=== PATIENT | male | born 1975 | race Two or more races ===

== ENCOUNTER → 2023-12-01 08:27 | Outpatient (REF) | payer OTHER, SELFPAY | LOC: RCS 08:27 | PROVIDERS: ATTENDING PHYSICIAN Internal Medicine Cardiovascular Disease; FAMILY PHYSICIAN Internal Medicine | DX: I35.1 Nonrheumatic aortic (valve) insufficiency (principal) | CPT/HCPCS: 93306 ==

== ENCOUNTER → 2024-04-06 06:54 | Outpatient (REF) | payer OTHER, SELFPAY | LOC: RAD 06:54 | PROVIDERS: ATTENDING PHYSICIAN Nurse Practitioner Family; FAMILY PHYSICIAN Internal Medicine | DX: E04.1 Nontoxic single thyroid nodule (principal) | CPT/HCPCS: 76536 ==

== ENCOUNTER → 2024-06-04 10:20 | Outpatient (REF) | payer OTHER, SELFPAY ==
[2024-06-06 17:15] LABS: Quantiferon Mitogen minus NIL 9.51 IU/mL; Quantiferon NIL 0.11 IU/mL; Quantiferon TB Gold Plus Negative (Negative)
== END ==
LOC: RAD 10:20
PROVIDERS: ATTENDING PHYSICIAN Nurse Practitioner Family; FAMILY PHYSICIAN Internal Medicine
DX: R05.9 Cough, unspecified (principal); Z11.1 Encounter for screening for respiratory tuberculosis
CPT/HCPCS: 36415; 71046; 86480

== ENCOUNTER → 2024-06-07 08:29 | Outpatient (REF) | payer OTHER, SELFPAY | LOC: RCS 08:29 | PROVIDERS: ATTENDING PHYSICIAN Internal Medicine Cardiovascular Disease; FAMILY PHYSICIAN Internal Medicine | DX: I35.1 Nonrheumatic aortic (valve) insufficiency (principal) | CPT/HCPCS: 93306 ==

== ENCOUNTER → 2024-06-16 09:13 | Outpatient (REF) | payer OTHER, SELFPAY ==
[2024-06-16 13:00] LABS: Urine Albumin Negative (Neg - Trace); Urine Bilirubin Negative (Negative); Urine Character Clear (Clear); Urine Color Yellow; Urine Glucose Negative (Negative); Urine Ketone Negative (Negative); Urine Leukocyte Negative (Negative); Urine Nitrite Negative (Negative); Urine Occult Blood Negative (Negative); Urine Specific Gravity 1.005 (<1.030); Urine Urobilinogen Negative (Neg - 1+)
[2024-06-16 14:07] LABS: ALT (SGPT) 20 U/L (0-50); AST (SGOT) 23 U/L (17-59); Albumin 4.3 g/dl (3.5-5.0); Alkaline Phosphatase 59 U/L (38-126); Blood Urea Nitrogen 24 mg/dl (9-20); Calcium 9.4 mg/dl (8.4-10.2); Carbon Dioxide 32 mmol/L (22-30); Chloride 99 mmol/L (98-107); Glucose 90 mg/dl (70-99); HDL Cholesterol 56 mg/dl; LDL Cholesterol, Calculated 86 mg/dl; Potassium 4.9 mmol/L (3.5-5.1); Sodium 140 mmol/L (135-145); Total Bilirubin 1.1 mg/dl (0.2-1.3); Total Cholesterol 152 mg/dl (50-199); Total Protein 7.1 g/dl (6.3-8.2); Triglyceride 50 mg/dl (10-149); Very Low Density Lipoprotein 10 mg/dl (0-30); eGFR > 60.00
[2024-06-16 14:21] LABS: Microalbumin, Random Urine < 0.6 mg/dl (0.6-1.7)
== END ==
LOC: HWRAD 09:13
PROVIDERS: ATTENDING PHYSICIAN Specialist; FAMILY PHYSICIAN Internal Medicine
DX: I70.1 Atherosclerosis of renal artery (principal); E78.00 Pure hypercholesterolemia, unspecified; I73.9 Peripheral vascular disease, unspecified; I10 Essential (primary) hypertension; E87.3 Alkalosis
CPT/HCPCS: 36415; 76775; 80053; 80061; 81003; 82043

== ENCOUNTER 2024-07-16 09:27 | Day surgery (SDC) | payer OTHER, SELFPAY ==
[2024-07-08 09:15] LABS: % Basophils 0.5 % (0-2); % Immature Granulocytes 0.3 % (0-0.5); % Lymphocytes 36.8 % (20.5-51.1); % Monocytes 12.6 % (1.7-9.3); % Neutrophils 47.8 % (42.2-75.2); Absolute Eosinophils 0.2 10^3/uL (0-0.7); Absolute Lymphocytes 2.8 10^3/uL (1.2-3.4); Absolute Neutrophils 3.7 10^3/uL (1.4-6.5); Hematocrit 43.4 % (39.0-52.0); Hemoglobin 14.3 g/dL (13.0-18.0); Mean Corp Hgb Conc. 32.9 g/dL (33.0-37.0); Mean Corpuscular Hgb 29.5 pg (27.0-31.0); Mean Corpuscular Volume 89.5 fL (80.0-94.0); Mean Platelet Volume 10.9 fL (7.4-10.4); Nucleated Red Blood Cells % 0 % (-); Platelet Count 153 10^3/uL (130-400); Red Blood Cell Count 4.85 10^6/uL (4.70-6.10); Red Cell Dist. Width 14.8 % (11.5-14.5); White Blood Cell Count 7.7 10^3/uL (4.8-10.8)
[2024-07-16] VITALS (12 sets, daily range): BP systolic 94–129; BP diastolic 38–52; BMI 25.5
[2024-07-16] MEDS: NSS 229 ML IV (12:01)
--- NOTE | 2024-07-16 13:38 | ITS.CL.PN ---
Loss Control Representative - Procedure Note
Procedure
Procedure Note:
CARDIAC CATHETERIZATION REPORT
Date of Procedure: 07/16/2024
Referring: Dr. Mike Benavidez MD, PhD
Indication: Severe aortic insufficiency, evaluation prior to CT surgery
PROCEDURE(S)
1. left heart catheterization
2. coronary angiography
ACCESS: 6F right radial artery (closure: radial band)
CATHETERS
1. 6F JR4
2. 6F JL3.5 (best for LAD)
3. 6F JL4 (best for LCx)
MODERATE SEDATION: 25 minutes of moderate sedation was utilized. An independent medical record technician was present to assist with and help manage the patient's level of consciousness and physiologic status.
HEMODYNAMIC DATA
LV 138/10 (EDP 23) mmHg
AO 126/51 (mean 80) mmHg
CORONARY ANGIOGRAPHY
Dominance: Left
LM: Absent (LAD and LCx arise from the LCC with separate ostia)
LAD: Large vessel giving rise to 3 small diagonal branches and multiple septal perforators. There is no coronary artery disease.
LCx: Large dominant vessel giving rise to a moderate caliber OM1, 2 moderate caliber LPL branches, and a moderate caliber LPDA. There is no coronary artery disease.
RCA: Small, nondominant, and without disease
RADIATION: dose 7.13 mGy; DAP 14.3361 Gy*cm2; fluoroscopy time 5.9 min
CONCLUSIONS
1. Normal coronary arteries and a left dominant system with the LAD and LCx arising from separate ostia.
2. Moderately elevated LV filling pressure with no aortic stenosis.
RECOMMENDATIONS
1. Proceed with surgical evaluation for AVR.
2. Primary prevention of coronary artery disease.
Copy to: Dr. Oumar Davidson MD (CT surgeon); Dr. Alfred Goncalves MD (life skills instructor); Dr. Roberto Arreola MD (PCP)
Signed: Ralph Benavidez MD, PhD
== END 2024-07-16 16:09 | disposition home or self-care (01) ==
LOC: CATH 09:27
PROVIDERS: ATTENDING PHYSICIAN Student in an Organized Health Care Education/Training Program; FAMILY PHYSICIAN Internal Medicine
DX: I35.1 Nonrheumatic aortic (valve) insufficiency (principal); Z79.82 Long term (current) use of aspirin; Z79.899 Other long term (current) drug therapy
CPT/HCPCS: 99152; 99153; 36415; 85025; 93005; 93458; C1894; Q9967

== ENCOUNTER → 2024-07-21 09:00 | Outpatient (REF) | payer OTHER, SELFPAY | LOC: RAD 09:00 | PROVIDERS: ATTENDING PHYSICIAN Thoracic Surgery (Cardiothoracic Vascular Surgery); FAMILY PHYSICIAN Internal Medicine | DX: I35.1 Nonrheumatic aortic (valve) insufficiency (principal); I77.810 Thoracic aortic ectasia; Z01.810 Encounter for preprocedural cardiovascular examination | CPT/HCPCS: 71275; 74174; Q9967 ==

== ENCOUNTER 2024-09-14 05:15 | Inpatient (IN) | payer OTHER, SELFPAY ==
[2024-07-27 08:40] VITALS: BMI 24.4
[2024-07-27 09:10] LABS: Urine Albumin Negative (Neg - Trace); Urine Bilirubin Negative (Negative); Urine Character Clear (Clear); Urine Color Yellow; Urine Glucose Negative (Negative); Urine Ketone Negative (Negative); Urine Leukocyte Negative (Negative); Urine Nitrite Negative (Negative); Urine Occult Blood Negative (Negative); Urine Urobilinogen Negative (Neg - 1+)
[2024-07-27 09:10] LABS: % Basophils 0.5 % (0-2); % Eosinophils 1.1 % (0-6); % Immature Granulocytes 0.1 % (0-0.5); % Lymphocytes 30.8 % (20.5-51.1); % Monocytes 11.2 % (1.7-9.3); % Neutrophils 56.3 % (42.2-75.2); Absolute Eosinophils 0.1 10^3/uL (0-0.7); Absolute Lymphocytes 2.3 10^3/uL (1.2-3.4); Absolute Monocytes 0.8 10^3/uL (0.1-0.6); Absolute Neutrophils 4.2 10^3/uL (1.4-6.5); Hematocrit 43.8 % (39.0-52.0); Hemoglobin 14.4 g/dL (13.0-18.0); Mean Corp Hgb Conc. 32.9 g/dL (33.0-37.0); Mean Corpuscular Hgb 29.1 pg (27.0-31.0); Mean Corpuscular Volume 88.7 fL (80.0-94.0); Mean Platelet Volume 10.5 fL (7.4-10.4); Nucleated Red Blood Cells % 0 % (-); Platelet Count 185 10^3/uL (130-400); Red Blood Cell Count 4.94 10^6/uL (4.70-6.10); Red Cell Dist. Width 14.5 % (11.5-14.5); White Blood Cell Count 7.4 10^3/uL (4.8-10.8)
[2024-07-27 09:21] LABS: APTT 30.2 Sec (23.4-35.0); INR 1.03; PT 13.8 Sec (11.4-14.6)
--- NOTE | 2024-07-27 09:56 | CM ---
Chart reviewed. Met with the patient in PAT. Reviewed preoperative and postoperative instructions and restrictions, along with showering guidelines. Gave patient Cardiac Surgery Book. Patient is agreeable to a home visit with CT Transitional
RN. Patient is independent of ADLS, lives with his in a 3 STH, 4 KAYLAH, 0 DME. Plan is for the patient to return home with CT Transitional RN. CM to follow.
[2024-07-27 10:23] LABS: ALT (SGPT) 18 U/L (0-50); AST (SGOT) 22 U/L (17-59); Albumin 4.4 g/dl (3.5-5.0); Alkaline Phosphatase 62 U/L (38-126); Blood Urea Nitrogen 24 mg/dl (9-20); Calcium 9.3 mg/dl (8.4-10.2); Carbon Dioxide 30 mmol/L (22-30); Chloride 101 mmol/L (98-107); Direct Bilirubin 0.3 mg/dl (0.0-0.4); Estimated Creatinine Clearance 74 ml/min; Glucose 99 mg/dl (70-99); Sodium 140 mmol/L (135-145); eGFR > 60.00
[2024-07-27 10:35] LABS: Glycohemoglobin (HgbA1c) 5.7 % (4.0-5.6)
[2024-08-27 08:29] VITALS: BMI 24.4
[2024-08-27 09:05] LABS: % Basophils 0.5 % (0-2); % Eosinophils 1.5 % (0-6); % Immature Granulocytes 0.3 % (0-0.5); % Lymphocytes 36.7 % (20.5-51.1); % Monocytes 12.1 % (1.7-9.3); % Neutrophils 48.9 % (42.2-75.2); Absolute Eosinophils 0.1 10^3/uL (0-0.7); Absolute Lymphocytes 2.3 10^3/uL (1.2-3.4); Absolute Monocytes 0.8 10^3/uL (0.1-0.6); Hematocrit 42.5 % (39.0-52.0); Hemoglobin 14.2 g/dL (13.0-18.0); Mean Corp Hgb Conc. 33.4 g/dL (33.0-37.0); Mean Corpuscular Hgb 29.5 pg (27.0-31.0); Mean Corpuscular Volume 88.2 fL (80.0-94.0); Nucleated Red Blood Cells % 0 % (-); Platelet Count 185 10^3/uL (130-400); Red Blood Cell Count 4.82 10^6/uL (4.70-6.10); White Blood Cell Count 6.2 10^3/uL (4.8-10.8)
[2024-08-27 09:11] LABS: Urine Albumin Negative (Neg - Trace); Urine Bilirubin Negative (Negative); Urine Character Clear (Clear); Urine Color Yellow; Urine Glucose Negative (Negative); Urine Ketone Negative (Negative); Urine Leukocyte Negative (Negative); Urine Nitrite Negative (Negative); Urine Occult Blood Negative (Negative); Urine Specific Gravity 1.015 (<1.030); Urine Urobilinogen Negative (Neg - 1+)
[2024-08-27 09:13] LABS: INR 0.99; PT 13.4 Sec (11.4-14.6)
[2024-08-27 09:14] LABS: APTT 31.2 Sec (23.4-35.0)
[2024-08-27 09:28] LABS: ALT (SGPT) 14 U/L (0-50); AST (SGOT) 19 U/L (17-59); Albumin 4.3 g/dl (3.5-5.0); Alkaline Phosphatase 53 U/L (38-126); Blood Urea Nitrogen 27 mg/dl (9-20); Calcium 9.1 mg/dl (8.4-10.2); Carbon Dioxide 33 mmol/L (22-30); Chloride 106 mmol/L (98-107); Estimated Creatinine Clearance 81 ml/min; Glucose 88 mg/dl (70-99); Potassium 4.8 mmol/L (3.5-5.1); Sodium 142 mmol/L (135-145); Total Bilirubin 0.7 mg/dl (0.2-1.3); Total Protein 7.2 g/dl (6.3-8.2); eGFR > 60.00
--- NOTE | 2024-08-27 09:28 | CM ---
Met with Mr. Lozano in [facility]. He states prior to admission he resides with his spouse in a three story home with four steps to enter. He states he has a full flight of steps to get to bedroom/full bathroom. He states he has a powder room on the
first floor and another full bathroom on the lower level. He states prior to admission he was independent with ambulation and adls. He states he does not have any DME in the home. He states he has a prescription plan and uses [facility]. He
states his spouse works outside the home but his [id number]-sg-sdu will be home to assist in his care if needed. The discharge plan is to return home with his spouse and [id number] and a home visit by the Transitional Care Nurse when medically
stable.
We briefly review the shower instructions. He already has the soap. Gave him the shower instructions again. We also reviewed restrictions including sternal precautions and driving restrictions. We discusses a home visit by the Transitional Care
Nurse. He is agreeable to a home visit. The plan is for Mechanical Bentoll Root Replacement on Saturday, September 14, 2024.
[2024-08-27 10:22] LABS: Glycohemoglobin (HgbA1c) 5.7 % (4.0-5.6)
[2024-09-14] VITALS (18 sets, daily range): BP systolic 78–172; BP diastolic 54–76; BMI 23.7
[2024-09-14] MEDS: LOPRESSOR 25 MG PO (05:40)
[2024-09-14] MEDS: PROTONIX 40 MG PO (05:40)
[2024-09-14] MEDS: MAGNESIUM OXIDE 500 MG PO (05:40)
[2024-09-14] MEDS: BACTROBAN 2% OINTMENT 1 APPLIC NASAL ×2 (05:41→20:14)
--- NOTE | 2024-09-14 06:00 | PTCARENOTE ---
[facility] BELKYS clip with Dr. Davidson. two home showers confirmed. pt clipped and washed with CHG wipes. home medications reviews. pre op meds given. all admission questions answered. preop checklist
completed. pt awaiting CVOR.
--- NOTE | 2024-09-14 06:19 | W.CVOR.SURPR ---
CVOR Surgeon Immed Pre Op
-
I have examined this patient prior to performance of the scheduled procedure.
The patient's condition is unchanged from the time of the dictated/written History and
Physical and the patient is able to undergo the scheduled procedure.
Mech Bentall + BELKYS Clip
[2024-09-14 07:10] LABS: ACT+ - POC 129 Seconds (82-134)
[2024-09-14 07:44] LABS: Urine Albumin 1+ (Neg - Trace); Urine Bilirubin Negative (Negative); Urine Character Clear (Clear); Urine Color Yellow; Urine Glucose Negative (Negative); Urine Ketone Negative (Negative); Urine Leukocyte Negative (Negative); Urine Nitrite Negative (Negative); Urine Occult Blood Negative (Negative); Urine Urobilinogen Negative (Neg - 1+)
[2024-09-14 07:57] LABS: Urine Squamous Cell 0-2 /LPF (Few)
[2024-09-14 07:58] LABS: Urine Bacteria Few (Negative); Urine Red Blood Cell 0-2 /HPF (0-2); Urine White Cell 0-2 /HPF (0-5)
[2024-09-14 08:31] LABS: ACT+ - POC 672 Seconds (82-134)
[2024-09-14 09:11] LABS: ACT+ - POC 730 Seconds (82-134)
[2024-09-14 09:37] LABS: ACT+ - POC 523 Seconds (82-134)
[2024-09-14 09:45] LABS: B.E. - POC 1.7 mmol/L; Glucose - POC 94 mg/dl (70-99); HCO3 - POC 26 mmol/L (21-28); Hematocrit - POC 39 % PCV (42-52); Hemodilution- POC No; Hemoglobin Calculated - POC 13.2; Ionized Calcium - POC 1.13 mmol/L (1.15-1.33); Lactate - POC < 0.30 mmol/L (0.36-0.75); PCO2 - POC 39 mmHg (35-48); PO2 - POC 498 mmHg (83-108); Potassium - POC 3.6 mmol/L (3.5-5.1); Sodium - POC 141 mmol/L (136-145); Specimen Type - POC Arterial; pH - POC 7.43 (7.35-7.45)
[2024-09-14 09:46] LABS: B.E. - POC 4.4 mmol/L; Glucose - POC 107 mg/dl (70-99); HCO3 - POC 27 mmol/L (21-28); Hematocrit - POC 37 % PCV (42-52); Hemodilution- POC Yes; Hemoglobin Calculated - POC 12.5; Ionized Calcium - POC 0.98 mmol/L (1.15-1.33); Lactate - POC < 0.30 mmol/L (0.36-0.75); PCO2 - POC 34 mmHg (35-48); PO2 - POC 397 mmHg (83-108); Potassium - POC 5.1 mmol/L (3.5-5.1); Sodium - POC 140 mmol/L (136-145); Specimen Type - POC Arterial; pH - POC 7.51 (7.35-7.45)
[2024-09-14 10:19] LABS: ACT+ - POC 527 Seconds (82-134)
[2024-09-14 10:36] LABS: B.E. - POC 3.3 mmol/L; Glucose - POC 128 mg/dl (70-99); HCO3 - POC 27 mmol/L (21-28); Hematocrit - POC 36 % PCV (42-52); Hemodilution- POC Yes; Hemoglobin Calculated - POC 12.2; Ionized Calcium - POC 1.05 mmol/L (1.15-1.33); Lactate - POC < 0.30 mmol/L (0.36-0.75); O2 Saturation %Calculated-POC 99.9 % (94-98); PCO2 - POC 37 mmHg (35-48); PO2 - POC 299 mmHg (83-108); Potassium - POC 4.4 mmol/L (3.5-5.1); Sodium - POC 141 mmol/L (136-145); Specimen Type - POC Arterial; pH - POC 7.47 (7.35-7.45)
[2024-09-14 11:02] LABS: ACT+ - POC 145 Seconds (82-134)
[2024-09-14 11:21] LABS: ACT+ - POC 126 Seconds (82-134)
--- NOTE | 2024-09-14 11:21 | W.PN.CD ---
Addendum entered and electronically signed by Juan Ospina MD 09/15/24 08:45:
Patient seen and examined in fibrillation with WHEEL OF FORTUNE DEALER on 09/14/24; agree with below.
- Patient underwent successful mechanical AVR Bentall procedure.
- Intubated; on low-dose Levophed.
- Being atrial paced with improvement in cardiac index.
- Telemetry monitoring.
- Routine post surgical care as directed by CT Surgery; will follow.
Original Note:
Today's Communication / Plan
-
Postoperative management per CT surgery
Follow telemetry
Impression / Plan
-
I/P: 48M with renal artery stenosis, hypertension (managed by nephrology), hypercholesterolemia, and severe aortic valve insufficiency with aortic root aneurysm presents for CT surgery
Primary software client architect: Dr. Benavidez
Severe aortic insufficiency and aortic root aneurysm status post AVR with root ( On-X valve conduit) by Dr. Davidson on 09/14/2024
- Left atrial appendage exclusion [35 mm device]
- Pre-LVEF 55% (dilated LV), post LVEF 60% without RWMA
- Because his [place] aorta tapers quite quickly into a normal caliber, only the proximal portion of his ascending was replaced
- CI improved with pacing
- EKG with sinus bradycardia & prolonged QT, EKG in am - paced at 60bpm
- Telemetry stable, follow
- Review antibiotic prophylaxis prior to discharge
- Warfarin timing per CT surgery
Sinus bradycardia
- AV pacing wires set to 60bpm
- Follow telemetry
Essential hypertension
- Follow BP in the postoperative setting
Renal artery stenosis
- 90% main and accessory left renal arteries
- He has seen Dr. Goncalves in the past
Hypercholesterolemia
- He declined statin in the outpatient setting
- Statin recommended given his atherosclerotic renal artery stenosis
PAD
RA, on Cosentyx
Physical Exam
Vital Signs/Labs
Vital Signs
Temp Resp BP Pulse Ox
97.7 F 18 172/56 98
09/14/24 06:03 09/14/24 06:03 09/14/24 05:20 09/14/24 06:03
09/13/24 09/14/24 09/15/24
06:59 06:59 06:59
Actual Weight 72.8 kg
PT 13.4 Sec (11.4-14.6) 08/27/24 08:38
INR 0.99 08/27/24 08:38
APTT 31.2 Sec (23.4-35.0) 08/27/24 08:38
Physical Exam
Constitutional: No acute distress and Comfortable
EENT: Anicteric and Moist mucous membranes
Cardiovascular: Rhythm & rate is regular and Pedal edema is absent
Respiratory: Lungs clear to auscul. and Other (mechanical ventilation)
GI: Soft and Flat
Neuro/Psych: Alert
Other: Skin (warm and dry)
Data Reviewed
-
Date of Service: September 14, 2024
EKG: Report Reviewed by me
Labs: Labs Reviewed by me
Old Records: Reviewed
[2024-09-14 11:24] LABS: B.E. - POC 1.6 mmol/L; Glucose - POC 137 mg/dl (70-99); HCO3 - POC 25 mmol/L (21-28); Hematocrit - POC 34 % PCV (42-52); Hemodilution- POC Yes; Hemoglobin Calculated - POC 11.5; Lactate - POC 0.31 mmol/L (0.36-0.75); PCO2 - POC 36 mmHg (35-48); PO2 - POC 408 mmHg (83-108); Potassium - POC 3.7 mmol/L (3.5-5.1); Sodium - POC 143 mmol/L (136-145); Specimen Type - POC Arterial; pH - POC 7.46 (7.35-7.45)
--- NOTE | 2024-09-14 11:36 | W.PN.CT.SURG ---
CT Surgery Operative Note
-
CARDIAC SURGERY OPERATIVE REPORT
Preoperative Diagnosis: Systemic inflammatory disorder, severe aortic valve insufficiency with a root aneurysm
Postoperative Diagnosis: Same
Procedure(s) Performed:
1. Standard sternotomy with aortic and right atrial cannulation
2. Left atrial appendage exclusion [35 mm device]
3. Aortic root replacement [mechanical Bentall]
4. Placement of temporary atrial ventricular pacing wires
5. Transesophageal echocardiography
Date of Surgery: 09/14/2024
Comorbidities:
1. Severe aortic valve insufficiency
2. Dilated cardiomyopathy secondary to aortic valve insufficiency
3. Ankylosing spondylitis and rheumatoid arthritis - affecting the aorta and root/valve
4. Hypertension
5. Hypothyroidism
6. Hyperlipidemia
7. CKD
8. Peripheral artery disease
9. Anxiety
10. Aortic root aneurysm
Attending Surgeon: Oumar Davidson MD, MS
Assistants: Maribel Richard PA-C (present and necessary to first responder, retraction, suction, exposure, suture management, and wound closure under my direction)
Anesthesiology: Juice Hernandez MD and Tala Gallardo CRNA
Scrub and Circulating RNs: Chantel Sotelo RN, Scarlett Cruz RN
Computer Discovery Teacher: Jessica Ramos CCP
Anesthesia: GETA
EBL: per perfusion records
Products: None
CPB Time: 135 minutes
Aortic Cross Clamp Time: 114 minutes
Indication(s) for Procedures: This is a 48-year-old male with systemic inflammatory disorder. He has known aortic valve insufficiency that was progressive over the last year. His LV has begun to also dilate. Given his findings, he was counseled
valve having operative intervention. With his systemic inflammatory disorder, he is likely not a good candidate for a Ross procedure, given the appearance of his valve leaflets with its thickening, he was not a candidate for a valve sparing root
replacement. Due to his young age, he was counseled about having a mechanical valve prosthesis placed. He agreed to move forward with surgery and so plan was to do a root replacement with a mechanical valved conduit and left atrial appendage
exclusion given his high propensity for possible A-fib
Aortic Valve Description: Bileaflet valve with fusion of the left and none at the commissure, very abnormal appearing annulus and valve tissue, thickening towards the base of the leaflets heading towards the insertion of the annulus, the root itself
was over 8 mm in terms of thickness at the wall. Left and right coronary ostia in the normal anatomic positions, the left main had a cloacal appearing ostium with both the circumflex and LAD coming off of a common os the right coronary ostia was
very small.
Findings: His left ventricular ejection fraction preoperatively was 55% with no significant regional wall motion abnormalities, he did have a dilated left ventricle that was known preoperatively. Following surgery his EF was 60% with no new
regional wall motion abnormalities. His aortic and root tissue was abnormal and very thickened. The wall of his root was approximately 8 mm in terms of thickness. His leaflets itself were retracted with prolapsing of the left and non, with
thickening of the base of the leaflet heading towards the insertion point at the annulus. His annulus itself was quite large measuring approximately [address] scan and easily accommodating a 29 mechanical valve prosthesis. I opted to replace his
root with a 27/29 mechanical valved conduit with everting stitches from sinus through annulus through LVOT and back up through the sewing cuff. A total of 16 pledgeted 2 Ethibond sutures were used to secure the conduit into place with core knots.
The left and right coronary buttons were anastomosed onto the neosinus, with the left being in the lower half of the right being in the upper half after filling the heart with volume to test for lie. His left atrial appendage was verified to be
free of any thrombus or debris preoperatively and then clipped with a 35mm device flush to the base. I oriented the mechanical valve perpendicular to the aorto mitral curtain, on transesophageal echocardiogram after coming off of cardiopulmonary
bypass there was normal leaflet excursion and the washing jets corresponding to the aorto mitral curtain area and the septal area which is inherent with this device. He did not require inotropic support and in fact was hyperdynamic with an index of
3, he did not require any blood products, he was in his [place] sinus rhythm after short period of AV pacing. Because his [place] aorta tapers quite quickly into a normal caliber, only the proximal portion of his ascending was replaced.
Specimen(s): Aortic tissue and aortic valve leaflets.
Prosthesis:
1. On-X valved conduit, serial #[id number]
2. Left atrial appendage clip, 35 mm, serial #[id number]
3. Bovine pericardium used as a gasket and certain areas of friable tissue, serial number [id number]
4. CoSeal used to cover the graft tissue
Description of Procedure: The patient was taken to the operating room. Their identity and procedure to be performed were verified and they were positioned supine on the operating table. Induction via general anesthesia with endotracheal intubation
was performed and central venous access and arterial monitoring were inserted. A preoperative transesophageal echocardiogram was performed to assess cardiac function and valvular function. The patient was then prepped and draped from chin to feet in
a sterile fashion. A preoperative time-out was performed with all members of the team present. A midline chest incision was performed along with median sternotomy. The innominate vein was isolated. Full heparinization was given (a total of 40,000
units). We created a pericardial well. The aortic cannulation site was chosen where it was soft, pliable, and free of calcium. Cannulation was performed with an arterial cannula in the ascending aorta and a triple-stage venous cannula through the
right atrial appendage. The arterial cannula line had an appropriate bounce and correlating pressures with test dosing. The pulmonary artery was away from the aorta to facilitate a clamp site and aortotomy. Next, a root vent/antegrade
cannula was inserted into the ascending aorta. A retrograde coronary sinus catheter was placed for the RA with HITESH and manual guidance. The ACT was confirmed to be over 400 and retrograde autologous priming was performed before commencing
cardiopulmonary bypass. A left ventricular vent was placed at the right superior pulmonary vein and secured. The aortic cross-clamp was placed after decreasing the flow on the bypass and mean arterial pressure. A total of 1.2L initial dose of
retrograde with a direct ostial antegrade Del-Nido cardioplegia solution was given and planned for re-dosing every 60 minutes as necessary. Immediately after crossclamping, retrograde was started and I opened the aorta aorta transversely and placed
a sutures. I was able to visualize the cardioplegia emanating from the common left main os. There was rapid electro-mechanical arrest of the heart at 250 cc of cardioplegia. After the initial 600 of retrograde was given, I gave an additional 200
into the right, 200 into the circumflex directly and 200 into the LAD directly. Cold slush was placed into a sponge and topically on the RV while we systemically cooled to 34 degrees centigrade. Once the heart was fully arrested finished giving
cardioplegia it was rotated medially and the left atrial appendage was clipped with a 35 mm device flush the base.
Carbon dioxide was used to flood the field. The location of both left and right coronary vessels were visualized in the root. The aorta was fully transected above the STJ. Stay sutures were placed at each commissure to facilitate exposure. The
leaflets were excised and sent for pathological assessment. Next, the aortic sinuses were resected and the left main and right coronary buttons were mobilized. 4-0 pledgeted sutures were used to retract the buttons. A total of 16 pledgeted 2-0
ethibond annular sutures were placed everting fashion circumferentially. These were brought through the sewing cuff of the valved conduit which as then parachuted into place. A Cor-Knot device was used to secure the annular sutures. An eye cautery
was used to first create a small opening to perform left main coronary button anastomosis. The button was then trimmed accordingly and using 5-0 Prolene with a bovine pericardial gasket, the button was reimplanted toward the Caleb-left sinus. Once
this was complete, the conduit was pressurized to evaluate for hemostasis of the left coronary button. Volume was then used to fill the heart to estimate the location for the right coronary button anastomosis. In a similar fashion an eye cautery
was used to create a small opening in the caleb-right sinus and anastomosis was created with 5-0 Prolene running fashion using bovine pericardium as a gasket and friable area. The proximal ascending aorta was then resected and the valved conduit was
trimmed accordingly. The distal anastomosis was performed with a running 4-0 Prolene in a single layer using bovine pericardium as a gasket. Hemostatic absorbable sealant was placed along the suture lines.
De-airing maneuvers were performed and temporary bipolar ventricular pacing wires were placed on the base of the right ventricle and temporary atrial pacing wires at the SVC/Atrial junction. The patient was placed in a Trendelenburg position and
flows on bypass were lowered. The aortic cross clamp was removed and flows were slowly brought back up. The suture lines appeared hemostatic. Transesophageal echocardiography revealed no AI and appropriate prosthetic function. Once de-airing was
satisfactory, the left ventricular vent was removed. After verifying acceptable parameters, we initiated weaning from cardiopulmonary bypass. Once we were off cardiopulmonary bypass, the venous cannula was clamped and removed. A test dose of
protamine was administered and the patient was monitored for any adverse reaction before resuming protamine. Once half of the protamine dose was delivered, pump suckers were turned off and the systolic blood pressure was lowered for aortic
decannulation. The aortic cannula was removed and pursestrings were tied down. All cannulation sites were oversewn with a 4-0 prolene. The suture lines were inspected and hemostasis was confirmed. Mediastinal hemostasis was obtained. Two 24Fr Tj
drains were placed within the pericardium. The sternum was approximated with 4 #7 single and 3 #8 double stainless steel wires. Fascia was approximated with #1 vicryl suture. The subcutaneous, dermis and epidermis were closed in layers in a running
fashion. The skin wound was cleansed and dressed.
All instrument, sponge, and needle counts were confirmed to be correct x 2 at the end of the operation. The patient was transferred to the cardiac intensive care unit in critical but stable condition.
I, Dr. Oumar Davidson, was present, scrubbed for, and performed all critical elements of this procedure.
Oumar Davidson MD, MS
Cardiothoracic Surgeon
[facility]
This dictation was created using the [employer] dictation system. Please excuse any grammatical, typographical, or 'sound alike' errors
--- NOTE | 2024-09-14 11:53 | W.PN.UPDATE ---
Update Note
Progress Note Update
48 year old male electively admitted 09/14/24 for AVR, root replacement due to aortic insufficiency and root enlargement
IV fluids: 1800
U.O.:� 600
Blood:� none
Wires:� A & V wires
Drips: Precedex @ 0.5�
�
NEURO: sedated, pupils +2mm B/L
RESP: #8OT @24cm> 500/60%/14/5. Lungs clear B/L. 2 mediastinal (20cc on arrival) chest tubes to -20cm suction. Sanguineous drainage, no air leak, no crepitus
CV: RRR +S1, S2, no S3, no�rub, no murmur. Dermabond to median sternotomy. RIJ w/[place] locked @ 47cm. PA 21/10; CVP 3; C.O 3.58/CI 2.07
ABD: flat, soft, no BS
EXT: no edema, +2/4 DP pulses B/L, no femoral bruit, radial A-line intact
: Ivan with clear yellow urine
�
A/P: POD #0 s/p AVR/aortic root replacement [#27/29mm mechanical Bentall], left atrial appendage exclusion [35 mm device]
- Keep SBP 90-110mmHg
- wean and extubate
- will need instruction regarding antibiotic prophylaxis for dental and invasive procedures
- begin Coumadin 09/15 for mechanical AVR (goal INR 2-3)
�
# acute surgical blood loss anemia-expected
- trend CBC
�
# Hypothyroidism
- resume Synthroid 75mcg daily on 09/15
# Anklylosing spondylitis
- monthly Cosentyx
�
# Hyperlipidemia
- resume�Zetia 10mg daily on 09/15
[2024-09-14 12:03] LABS: Glucose - Point of Care 124 mg/dl (70-99)
[2024-09-14 12:06] LABS: Glucose - Point of Care 130 mg/dl (70-99)
[2024-09-14 12:21] LABS: B.E. 1.5 mmol/L; HCO3 25.9 mmol/L (21-28); Ionized Calcium 1.15 mMOL/L (1.15-1.33); PCO2 39 mmHg (35-48); PO2 189 mmHg (83-108); Potassium 3.7 mMOL/L (3.5-5.1); Sodium 136 mMOL/L (136-145); pH 7.43 (7.35-7.45)
[2024-09-14 12:24] LABS: Mixed Venous O2 Saturation 72.7 %
[2024-09-14 12:26] LABS: Hematocrit 35.7 % (39.0-52.0); Hemoglobin 12.2 g/dL (13.0-18.0); Platelet Count 136 10^3/uL (130-400)
[2024-09-14 12:31] LABS: APTT 32.3 Sec (23.4-35.0); INR 1.44; PT 17.8 Sec (11.4-14.6)
[2024-09-14] MEDS: SYNTHROID PO (12:35)
[2024-09-14] MEDS: NEURONTIN PO ×2 (12:35→16:44)
[2024-09-14] MEDS: LR 250 ML IV ×2 (12:35→14:31)
[2024-09-14] MEDS: ANCEF 10 IV ×2 (12:35)
[2024-09-14] MEDS: NSS 500 IV (12:35)
[2024-09-14] MEDS: CALCIUM GLUCONATE 100 IV (12:36)
[2024-09-14 12:40] LABS: Blood Urea Nitrogen 24 mg/dl (9-20); Estimated Creatinine Clearance 99 ml/min; Glucose 133 mg/dl (70-99); Magnesium 2.9 mg/dl (1.6-2.3)
--- NOTE | 2024-09-14 12:45 | PTCARENOTE ---
pt received from CVOR, sedated on Precedex gtt, RASS-5. Core temp 95.8F, bear hugger applied as ordered. SB on the monitor, HR 40s. A&V wires in place, pacer box off. goal SBP 90-[address] Davidson, Levophed gtt titrated as ordered. PAP 10-20s/10s.
CVP ~1-7. CI 1.3, PA Maribel aware. Dr Davidson at bedside, placed 100% A-paced, AAI 60/10. CI improved to 1.89. 250ml LR given per Dr. Davidson. palpable pulses, no edema. pt mechanically ventilated, ETT #8.0, 23cm@lip. SIMV 12, TV 500, PEEP 5, FIO2 40%.
99-100% POX. lungs clear anteriorly. CTx2, no air leak or crepitus noted. pt abdomen s/n, denies n/v. Ivan in place, clear yellow urine. sternal incision RETOUCHING OPERATOR, approximated. chest tube site c/d/i. RIJ cordis/swan maintained. R radial Kelsie flushed,
zeroed, and calibrated. PIV. insulin gtt running as ordered. lab work drawn, EKG performed, CXR completed. see worklist for VS, I&O, and assessment.
[2024-09-14 13:04] LABS: Glucose - Point of Care 140 mg/dl (70-99)
[2024-09-14] MEDS: KCL 50 IV ×2 (13:30→14:28)
--- NOTE | 2024-09-14 13:54 | CM ---
Chart reviewed. Patient is in the OR today. Patient is independent of ADLS, lives with his in a 3 STH, 4 KAYLAH, 0 DME. Plan is for the patient to return home with CT Transitional RN. CM to follow
--- NOTE | 2024-09-14 14:10 | PTCARENOTE ---
ava repleted, pt able to ALFORD, follows commands. nods head appropriately. pt placed on CPAP trial @~1407.
[2024-09-14 14:14] LABS: Glucose - Point of Care 111 mg/dl (70-99)
[2024-09-14] MEDS: TYLENOL PO (14:19)
[2024-09-14 14:39] LABS: B.E. - POC 3.4 mmol/L; Blood Urea Nitrogen - POC 22 mg/dl (3-120); Chloride - POC 108 mmol/L (96-111); Creatinine - POC 0.81 mg/dl (0.3-1.0); Glucose - POC 108 mg/dl (70-99); HCO3 - POC 27 mmol/L (21-28); Hematocrit - POC 34 % PCV (42-52); Hemodilution- POC No; Hemoglobin Calculated - POC 11.5; Ionized Calcium - POC 1.27 mmol/L (1.15-1.33); Lactate - POC 1.09 mmol/L (0.36-0.75); O2 Saturation %Calculated-POC 99.7 % (94-98); PCO2 - POC 37 mmHg (35-48); PO2 - POC 194 mmHg (83-108); Potassium - POC 4.2 mmol/L (3.5-5.1); Sodium - POC 141 mmol/L (136-145); Specimen Type - POC Arterial; pH - POC 7.48 (7.35-7.45)
[2024-09-14 15:04] LABS: Glucose - Point of Care 103 mg/dl (70-99)
--- NOTE | 2024-09-14 15:20 | CON.INTV ---
Addendum entered and electronically signed by Viji Harper MD 09/15/24 12:59:
09/15. Patient transferred out of cardiovascular ICU.
[facility] service will sign off, please call as needed
Original Note:
Consultation
Consultation Request
Date/Time Consultation Requested: 09/14/2024
Date/Time Consultation Performed: 09/14/2024
Requesting Provider: Oumar Davidson
Performing Provider: Viji Harper
Reason for Consultation: Aortic insufficiency
Medical History
-
Chief Complaint: Dyspnea
History of Present Illness:
Patient is a 48-year-old gentleman with known history of ankylosing spondylitis and aortic valve insufficiency follows up with cardiology as outpatient. He had an echocardiogram earlier this year which showed worsening aortic regurgitation along
with aortic root dilation. In 07/2024, patient had a cardiac catheterization performed which did not show any significant coronary artery disease. He was subsequently evaluated by cardiothoracic surgery and was admitted electively for aortic root
replacement along with left atrial appendage exclusion. Postsurgery, patient was admitted to CVICU and patient ambassador consultation was requested for further input.
Past medical history.
Ankylosing spondylitis
Hypertension, hyperlipidemia
Hypothyroidism
Aortic insufficiency
No significant past surgical history
Social history. Non-smoker. Works as a databases computer consultant. Regularly exercises.
Allergies / Home Medications
Allergies
Allergy/AdvReac Type Severity Reaction Status Date / Time
No Known Allergies Allergy Verified 08/17/24 09:08
Home Medications
�Medication �Instructions �Recorded �Confirmed �Last Taken �Type
cholecalciferol (vitamin D3) 125 125 mcg PO DAILY Supplement 07/16/24 09/14/24 09/13/24 08:00 History
mcg (5,000 unit) tablet (Vitamin
D3)
coenzyme Q10 100 mg capsule 200 mg PO DAILY Supplement 07/16/24 09/14/24 09/11/24 08:00 History
(CoQ-10)
ezetimibe 10 mg tablet 10 mg PO HS High Cholesterol 07/16/24 09/14/24 09/12/24 08:00 History
levothyroxine 75 mcg tablet 75 mcg PO DAILY Thyroid 07/16/24 09/14/24 09/13/24 08:00 History
(Synthroid)
losartan 50 mg tablet 50 mg PO DAILY Blood Pressure 07/16/24 09/14/24 09/11/24 08:00 History
magnesium 200 mg tablet 400 mg PO HS Supplement 07/16/24 09/14/24 09/07/24 08:00 History
omega 4-mqp-esa-fish oil 910 1 cap PO DAILY Supplement 07/16/24 09/14/24 08/31/24 08:00 History
mg-1,400 mg capsule ([place]-3 Fish
Oil)
secukinumab 150 mg/mL subcutaneous 150 mg SC MONTHLY immunologic 07/16/24 09/14/24 08/23/24 08:00 History
syringe (Cosentyx) disorders
sulfasalazine 500 mg tablet 0.5 g PO Q48H immunologic disorder 07/16/24 09/14/24 09/13/24 08:00 History
chondroitin 80 mg-collagen 400 1 cap PO DAILY Supplement 07/23/24 09/14/24 09/11/24 08:00 History
mg-hyaluronic 40 mg-amino acid
capsule
magnesium citrate 100 mg tablet 500 mg PO DAILY Constipation 07/23/24 09/14/24 09/07/24 08:00 History
turmeric 400 mg capsule 400 mg PO DAILY Supplement 07/23/24 09/14/24 08/31/24 08:00 History
Review of Systems
-
Hematologic/Lymphatic: Other (All 14 systems reviewed and negative except as stated above in the history of present illness.)
Vitals / Labs / Diagnostic Testing
Vital Signs
Temp Pulse Resp BP Pulse Ox
98.2 F 60 11 96/60 100
09/14/24 15:00 09/14/24 15:00 09/14/24 15:00 09/14/24 15:00 09/14/24 15:00
Lab Data
09/14/24 12:05
Laboratory Results
09/14/24
12:05
PT 17.8 H
INR 1.44
APTT 32.3
pH 7.43
pCO2 39
pO2 189 H
HCO3 25.9
O2 Delivery Level
Diagnostic Testing:
Physical Exam
-
HEENT: Normocephalic
Cardiovascular: Other (Metallic click heard)
Respiratory: Clear and Non-Labored Respirations
GI: Non Distended
Neurology: Awake and Oriented
Skin: Warm
General: Comfortable
Assessment
-
S/p left atrial appendage exclusion, aortic root replacement for severe aortic regurgitation POD #0
Titrate off pressors per protocol, currently on Levophed @2, MAP 71
ECHO reviewed with normal EF
PA catheter readings reviewed, 25/11
Management of chest tubes per primary service
Extubated to nasal cannula, saturating 99% on 6 L
ABG(s) 7.43, 39, 189
CXR with no obvious opacities/infiltrates
Maintain supplement oxygen as needed
No prior history of pulmonary disease, no history of smoking
Can add nebulizers if needed
Aspiration precautions
Encouraged incentive spirometry, OOB/ambulation/early mobility
Advance diet as tolerated following extubation
GI prophylaxis: Pantoprazole
Monitor critical I/O's
Ivan/chest tube output
Hb/platelets postoperatively stable
Trend CBC for now
Can transfuse if indicated for Hb <7, plt <50 in surgical patients
DVT prophylaxis including SCDs
Insulin protocol initiated and ongoing
Transition to SQ/off as indicated per team
Other medical diagnoses:
- Ankylosing spondylitis
- Hyperlipidemia
- Hypothyroidism
- Hyperlipidemia
- Anxiety
Critical Care time 58 mins -- The patient is admitted for acute critical illness for the treatment of vital organ failure and/or prevention of further life-threatening conditions. Total care includes time spent in review of history, physical exam,
medications, hemodynamic/ventilator parameters, laboratory data, imaging and discussion with house staff, pharmacy, respiratory therapy, porcelain waxer, and nursing.
Data:
HITESH 09/2024: Eccentric hypertrophy of the left ventricle with low-normal systolic function. LVEF 55%.
Normal right ventricular size and function.
The aortic valve is dilated with sluggish, stiff leaflet motion. Severe aortic
insufficiency. No aortic stenosis.
Functional mitral regurgitation trace to mild in severity.
Normal tricuspid valve.
Dilated aortic root and ascending aorta that quickly tapers to normal size at
the level of the right pulmonary artery.
Small [id number] patent foramen ovale.
Normal left atrial appendage.
Cardiac Cath 07/2024: 1. Normal coronary arteries and a left dominant system with the LAD and LCx arising from separate ostia.
2. Moderately elevated LV filling pressure with no aortic stenosis.
ECHO 05/2024: Moderately dilated left ventricle with normal systolic function and no regional
wall abnormalities.
LVEF is 55% by Luque's method of this.
No LVH.
Normal RV size and function.
Severe eccentric aortic regurgitation.
Estimated PASP of 32 mmHg, assuming right atrial pressure of 3 mmHg.
Dilated aortic root (SOV 4.4 cm, ST junction 3.7 cm).
Compared to prior from December 01, 2023, AI is severe.
--- NOTE | 2024-09-14 16:00 | PTCARENOTE ---
EPOC completed at bedside by FIGURINE MAKER. pt extubated @1447 to 6LNC, 100% POX. oriented x4, follows commands. FIGURINE MAKER aware of hemodynamics, 250ml LR given as ordered. pt washed w/ CHG wipes, gown changed. face washed. oral hygiene performed. sequentials in
place. updated at bedside.
[2024-09-14 16:10] LABS: Glucose - Point of Care 116 mg/dl (70-99)
--- NOTE | 2024-09-14 16:15 | RESPNOTE ---
Patient extubated at 1447 to 6L NC after 30 minutes cpap wean. No stridor on extubation. patient able to verbalize name and clear secretions.
[2024-09-14 16:42] LABS: Hematocrit 34.8 % (39.0-52.0); Hemoglobin 11.9 g/dL (13.0-18.0); Platelet Count 152 10^3/uL (130-400)
[2024-09-14] MEDS: OFIRMEV 100 IV (16:42)
[2024-09-14] MEDS: LOW STRENGTH ASPIRIN 81 MG PO (16:42)
[2024-09-14] MEDS: PACERONE PO ×2 (16:45→22:46)
--- NOTE | 2024-09-14 17:50 | ECGCV ---
<Sherley Romero NP> notified of ECG critical value identified by electronic interpretation on ECG completed on <09/14/24>, at <1739>.
[2024-09-14 18:10] LABS: Glucose - Point of Care 84 mg/dl (70-99)
[2024-09-14] MEDS: ANCEF 5 IV (18:16)
--- NOTE | 2024-09-14 18:31 | ECGCV ---
<Sherley Romero NP> notified of ECG critical value identified by electronic interpretation on ECG completed on <09/14/24>, at <1811>.
--- NOTE | 2024-09-14 18:32 | PTCARENOTE ---
EKG performed as ordered x2, SHELL TRIM OPERATOR aware of results. pt offers no c/o CP or SOB. IS encouraged, 1750ml. tolerating ice chips and sips of water, no c/o n/v. paused pacer w/ SHELL TRIM OPERATOR at bedside, CI w/ intrinsic rhythm 1.44. placed back on AAI settings.
[2024-09-14 20:10] LABS: Glucose - Point of Care 108 mg/dl (70-99)
[2024-09-14] MEDS: SENOKOT-S 1 TABLET PO (20:14)
--- NOTE | 2024-09-14 20:30 | PTCARENOTE ---
Assumed care of pt from dayshift RN. Walking rounds completed. Pt is AAOx3. Resting in bed at this time. 100% A-paced on the tele monitor. HR 60. Temporary epicardial A/V wires intact. Pacer set to AAI 60/10. Audible heart tones. Click and rub
auscultated. BP stable. 110s-120/50s. Cardene infusing to keep SBPs 90-110. CVP ~ 5. PAPs teens/10s. Pt is on 2L NC. POX 98-99%. Lung sounds diminished B/L. Mediastinal CTx2 to -20 suction, no airleak noted, and output WNL. Deep breathing and IS
encouraged. Abdomen soft/nontender. Hypoactive BS. Ivan catheter intact and draining yellow urine. Sternal incision well approximated and TAXICAB STARTER. Right IJ cordis w/ SWAN @45 intact. Right radial a-line intact. PIV x1 intact. All lines leveled, zeroed,
and flushed. Glycemic protocol followed. Pt repositioned in bed. See worklist for full nursing assessment and interventions. Call coreas within reach.
[2024-09-14] MEDS: ZETIA 10 MG PO (21:14)
[2024-09-14] MEDS: NEURONTIN 100 MG PO (21:14)
[2024-09-14] MEDS: TYLENOL 1000 MG PO (21:14)
[2024-09-14] MEDS: ZOFRAN 4 MG IV (21:21)
[2024-09-14 22:04] LABS: Glucose - Point of Care 109 mg/dl (70-99)
[2024-09-14] MEDS: NITROGLYCERIN PREMIX 250 IV (22:05)
[2024-09-14] MEDS: COMPAZINE 10 MG IV (22:46)
[2024-09-14] MEDS: CARDENE 200 IV (23:23)
[2024-09-15] VITALS (27 sets, daily range): BP systolic 91–135; BP diastolic 54–78; PULSE 55; O2SAT 95; BMI 24.3
[2024-09-15 00:11] LABS: Glucose - Point of Care 105 mg/dl (70-99)
--- NOTE | 2024-09-15 00:20 | PTCARENOTE ---
Pt reassessed. No acute change in assessment. Remains 100% A-paced. Occasional PACs. HR 60. BP stable. Nitro added in addition to the Cardene to keep SBPs 90-110. PAPs teens/10s. CVP ~4. CI>2. Pt is 100% on 2 L NC. Mediastinal CTx2 assessment
unchanged. Ivan catheter intact and draining yellow urine. Pt w/ intermittent nausea. SWAN and a-line maintained - all lines leveled, zeroed, and flushed. Call coreas within reach.
[2024-09-15] MEDS: ANCEF 5 IV ×2 (02:05→10:08)
[2024-09-15] MEDS: CARDENE 200 IV ×2 (02:09→05:16)
[2024-09-15 02:15] LABS: Glucose - Point of Care 117 mg/dl (70-99)
[2024-09-15 03:41] LABS: Blood Urea Nitrogen 33 mg/dl (9-20); Calcium 8.1 mg/dl (8.4-10.2); Carbon Dioxide 23 mmol/L (22-30); Chloride 112 mmol/L (98-107); Estimated Creatinine Clearance 60 ml/min; Glucose 125 mg/dl (70-99); Hematocrit 32.3 % (39.0-52.0); Magnesium 2.2 mg/dl (1.6-2.3); Mean Corp Hgb Conc. 34.1 g/dL (33.0-37.0); Mean Corpuscular Hgb 29.6 pg (27.0-31.0); Mean Corpuscular Volume 87.1 fL (80.0-94.0); Mean Platelet Volume 11.7 fL (7.4-10.4); Platelet Count 148 10^3/uL (130-400); Potassium 4.5 mmol/L (3.5-5.1); Red Blood Cell Count 3.71 10^6/uL (4.70-6.10); Red Cell Dist. Width 13.9 % (11.5-14.5); Sodium 141 mmol/L (135-145); White Blood Cell Count 16.6 10^3/uL (4.8-10.8); eGFR 56.72
--- NOTE | 2024-09-15 03:45 | ECGCV ---
<Darrius Clarke> notified of ECG critical value identified by electronic interpretation on ECG completed on <09/15/2024>, at <0331>.
[2024-09-15 03:59] LABS: Glucose - Point of Care 108 mg/dl (70-99)
--- NOTE | 2024-09-15 04:00 | PTCARENOTE ---
Pt reassessed. CTPA at bedside during EKG - temporary pacer paused. Pt underlying rhythm SR. HR 60s. BP 100s/40s. Cardene and Nitro infusing. CVP ~6. PAPs teens/10s. CI > 2. Pt on 2 L NC. POX 96%. Mediastinal CT assessment unchanged. Ivan catheter
intact and draining yellow urine. [place] and a-line leveled, zeroed, and flushed. Pt repositioned in bed. Tolerating ice chips. Labs drawn and sent. No c/o pain at this time. Glycemic protocol followed. Call coreas within reach.
--- NOTE | 2024-09-15 05:00 | W.PN.CT ---
Today's Communication / Plan
-
-pod #1
-no significant issues overnight, some nausea
-kept sbp 90-[address] Davidson - will liberate sbp to 90-130 today
-CI 3.19, CO 6.00. Drips: Cardene 12.5, Nitro 25, Insulin
-CT outputs: 2 meds 160/360 in 12/24 hrs
-follow Cr - 1.5 today (1.1-1.2 preop)
-deline
-maintain Ivan d/t RAMON
-encourage OOB, IS
-plans for anticoagulation for mechanical AVR
Assessment / Plan
-
- Systemic inflammatory disorder, severe aortic valve insufficiency with a root aneurysm- s/p Aortic root replacement [mechanical Bentall, On-X valved conduit]; LAAE [35 mm device] by Dr. Davidson on 09/14/24, pod #1
- Intraop HITESH: LVEF preop was 55% with no significant regional wma, he did have a dilated left ventricle that was known preoperatively. Following surgery, his EF was 60% with no new regional wma. His aortic and root tissue was abnormal and very
thickened. The wall of his root was approximately 8 mm in terms of thickness. His leaflets itself were retracted with prolapsing of the left and non, with thickening of the base of the leaflet heading towards the insertion point at the annulus.
His annulus itself was quite large measuring approximately [address] scan and easily accommodating a 29 mechanical valve prosthesis.
- Severe aortic valve insufficiency
- Dilated cardiomyopathy secondary to aortic valve insufficiency
- Ankylosing spondylitis and rheumatoid arthritis - affecting the aorta and root/valve
- Hypertension
- Hypothyroidism
- Hyperlipidemia
- L MARILIA
- CKD 2 (Cr 1.1-1.2 preop)
- Peripheral artery disease
- Anxiety
- Aortic root aneurysm
- Non-smoker
- Acute postop blood loss anemia- stable without transfusion
- Acute postop abnormal ECG, suspect pericarditis, + rub
- RAMON on CKD
- Acute postop atelectasis
-Acute postop hypovolemia with subsequent hypervolemia
Discussed patient care with: Nursing and Care Team
Subjective
-
Date of Service: September 15, 2024
Objective Data
-
Lab Results
09/15/24 03:08
09/15/24 03:08
PT 17.8 Sec (11.4-14.6) H 09/14/24 12:05
INR 1.44 09/14/24 12:05
APTT 32.3 Sec (23.4-35.0) 09/14/24 12:05
Vital Signs
Vital Signs
Temp Pulse Resp BP Pulse Ox
98.8 F 67 17 100/56 97
09/15/24 04:00 09/15/24 03:55 09/15/24 03:55 09/15/24 03:00 09/15/24 04:00
CT Intake/Output/Weight
09/14/24 09/14/24 09/15/24
06:59 18:59 06:59
Intake Total 1218.8 / 1991.7 772.9 / 1991.7
Output Total 685 / 1295 610 / 1295
Balance 533.8 / 696.7 162.9 / 696.7
SaO2: 97
Physical Exam
-
General: Awake and AOx3
Cardiovascular: Regular rate & rhythm, No Murmurs and Rub
Respiratory: Decreased Breath Sounds
Sternum: Stable
Incision: Clean, Dry and Intact
Extremities: No Edema (2+ DPs b/l)
Abdomen: soft, nontender, nondistended, +decreased bowel sounds
Data Reviewed
-
Lab Results: Results Reviewed
Medications: Active Meds Reviewed
Chest X-Ray: Report Reviewed and Image Reviewed
ECG: Report Reviewed and Image Reviewed
[2024-09-15] MEDS: LR 250 ML IV (05:51)
[2024-09-15] MEDS: SYNTHROID 75 MCG PO (05:58)
[2024-09-15] MEDS: TYLENOL 1000 MG PO ×3 (05:58→21:20)
[2024-09-15 06:18] LABS: Glucose - Point of Care 123 mg/dl (70-99)
--- NOTE | 2024-09-15 07:42 | W.PN.ANS.POP ---
Anesthesia Post Operative
- Anesthesia Post Op Note
Vital Signs Stable-See Nursing Note: Yes
Airway Patent: Yes
Adequate Pain Control: Yes
Change in Mental Status: No
Current Postoperative Nausea & Vomiting: No
Anesthesia Complications: No
General Anesthetic Recall: No
Unplanned Admission: No
Post Op Hydration Adequate: Yes
[2024-09-15] MEDS: DEMEROL 25 MG IV (07:50)
--- NOTE | 2024-09-15 08:00 | PTCARENOTE ---
Addendum entered by Ivana Ortiz RN 09/15/24 11:53:
+click.
Original Note:
Assumed care of patient. Walking rounds completed with previous RN and pt assisted OOB with 2 assist. Pt tolerated. Pt alert and oriented x4. Denies pain, nausea, and shortness of breath. [place] with equal strength throughout. SR on tele with rates in
the 70s. BP controlled with Nitro and Cardene, titrating as BP allows. 130/64. +Rub. Bilateral radial and DP pulses palpable. +1 b/l foot and hand edema. Epicardial AV wires to temp pacer box. thresholds completed. CT SR VICE PRESIDENT notified of inappropriate
pacing with sensitivity at lowest value. To back up . POX 98% on 2L NC, titrated to RA, POX 94%. Lungs diminished throughout. No cough noted. IS encouraged-1500ml achieved. Mediastinal chest tubes x2 y-sited to 1 atrium to -20cm suction
draining serosanguinous fluid. No air leaks, tidaling crepitus noted. Abdomen soft, nontender. Hypoactive BS. +gas. Ivan intact draining adequate amounts of clear deneen urine. Sternal incision approximated with skin glue, JOSE G. CT dressing CDI.
Right IJ cordis intact with NSS KVO infusing. Right radial kervin intact with appropriate waveform, flushed, leveled, and zeroed, reading higher than cuff, ct electric shipyard operator aware. Right AC 18g PIV intact. See MAR for medication administration. See worklist for
complete nursing assessment. Plan of care reviewed and patient in agreement.
--- NOTE | 2024-09-15 08:36 | W.PN.CD ---
Today's Communication / Plan
-
Hold losartan.
Incentive spirometry.
Ambulation.
Warfarin for mechanical SAVR per CT surgery.
Consider diuresis tomorrow.
Impression / Plan
-
Impression/Plan: 48M with renal artery stenosis/CKD, ankylosing spondylitis/rheumatoid arthritis, hypertension (managed by nephrology), hypercholesterolemia, and severe aortic valve insufficiency with aortic root aneurysm presents for elective
AVR/Aortic root replacement.
#Aortic root aneurysm leading to severe aortic valve insufficiency
-Chronic, progressive.
-S/P mechanical SAVR with root ( On-X valved conduit, serial #[id number]) with Dr. Davidson, 09/14/2024.
-Left atrial appendage exclusion (#35 Atriclip, serial #[id number]).
-Pre-LVEF 55% (dilated LV), post LVEF 60% without RWMA
-Because his [place] aorta tapers quite quickly into a normal caliber, only the proximal portion of his ascending was replaced
-Routine post operative care.
-Warfarin for mechanical SAVR per CT surgery.
-Pain/chest tube management per CT surgery.
-Incentive spirometry.
-Ambulation.
#Sinus bradycardia
-Acute.
-AV pacing wires set to 60bpm.
-Follow telemetry.
#Essential hypertension
-Chronic, stable.
-Losartan restarted.
#Acute on chronic Kidney Disease/Renal artery stenosis.
-Acute, creatinine up to 1.7 (baseline 1.2).
-90% main and accessory left renal arteries.
-Hold losartan.
-I suspect a degree of cardiorenal syndrome.
-Check UA.
-Consider diuretics tomorrow.
#Hypercholesterolemia
-Chronic, stable.
-He declined statin in the outpatient setting.
-Consider PCSK9i as an outpatient.
#PAD
-Chronic, stable.
-Currently asymptomatic.
#RA
-Chronic, stable.
-Remains on Cosentyx.
Primary casino surveillance officer: Dr. Benavidez
Subjective/Interval History:
Surgery yesterday.
Weight is up 1.9 kg from yesterday.
BP stable.
CI 3.45 L/min/m2 this morning. PA catheter discontinued.
SaO2 97% on RA.
Creatinine up to 1.7.
Feels well.
DATA:
Cardiac Catheterization, 07/16/2024:
CONCLUSIONS
1. Normal coronary arteries and a left dominant system with the LAD and LCx arising from separate ostia.
2. Moderately elevated LV filling pressure with no aortic stenosis.
Surgery, 09/14/2024:
Procedure(s) Performed:
1. Standard sternotomy with aortic and right atrial cannulation.
2. Left atrial appendage exclusion [35 mm device].
3. Aortic root replacement [mechanical Bentall].
4. Placement of temporary atrial ventricular pacing wires.
5. Transesophageal echocardiography.
Physical Exam
Vital Signs/Labs
Vital Signs
Temp Pulse Resp BP Pulse Ox
36.9 C 74 19 108/62 97
09/15/24 05:00 09/15/24 07:05 09/15/24 07:05 09/15/24 07:00 09/15/24 07:05
09/13/24 09/14/24 09/15/24
11:59 11:59 11:59
Actual Weight 72.8 kg 74.7 kg
09/15/24 03:08
09/15/24 03:08
PT 17.8 Sec (11.4-14.6) H 09/14/24 12:05
INR 1.44 09/14/24 12:05
APTT 32.3 Sec (23.4-35.0) 09/14/24 12:05
Magnesium 2.2 mg/dl (1.6-2.3) 09/15/24 03:08
Physical Exam
Constitutional: No acute distress and Comfortable
EENT: Anicteric and Moist mucous membranes
Cardiovascular: Rhythm & rate is regular, Pedal edema is absent, JVD pressure is normal, S1S2 is normal (S2 is crisp and mechanical.) and Murmur/rub/gallop absent
Respiratory: Respiratory effort normal and Other (Decreased at the bases.)
GI: Soft, Distention absent, Non tender and Normal bowel sounds
Neuro/Psych: AO x 3
Data Reviewed
-
Date of Service: September 15, 2024
Medical Decision Making: Reviewed Test Results, Independent Historian Assessment and Test Interpretation
EKG: Tracing Personally Visualized and interpreted and Report Reviewed by me
Echo: Report Reviewed by me
X-Ray/CT/US/MRI/NUC/PET: Image Personally Visualized and interpreted and Report Reviewed by me
Medical Tests (PFT, Pathology etc): Report Reviewed by me
Labs: Labs Reviewed by me
Old Records: Reviewed
[2024-09-15] MEDS: LOW STRENGTH ASPIRIN 81 MG PO (09:04)
[2024-09-15] MEDS: LIDOCAINE 4% PATCH 1 PATCH TOPICAL (09:04)
[2024-09-15] MEDS: BACTROBAN 2% OINTMENT 1 APPLIC NASAL ×2 (09:04→20:07)
[2024-09-15] MEDS: SENOKOT-S 1 TABLET PO ×2 (09:04→20:07)
[2024-09-15] MEDS: MAGNESIUM OXIDE 500 MG PO ×2 (09:04→20:07)
[2024-09-15] MEDS: PROTONIX 40 MG PO (09:05)
[2024-09-15] MEDS: NEURONTIN 100 MG PO ×3 (09:05→21:22)
[2024-09-15] MEDS: LOPRESSOR 12.5 MG PO ×2 (09:36→20:07)
[2024-09-15 10:27] LABS: Glucose - Point of Care 182 mg/dl (70-99)
[2024-09-15 10:27] LABS: Glucose - Point of Care 102 mg/dl (70-99)
[2024-09-15] MEDS: NSS IV (10:34)
[2024-09-15 11:08] LABS: Glucose - Point of Care 154 mg/dl (70-99)
[2024-09-15 11:23] LABS: Blood Urea Nitrogen 39 mg/dl (9-20); Calcium 7.9 mg/dl (8.4-10.2); Carbon Dioxide 21 mmol/L (22-30); Chloride 108 mmol/L (98-107); Estimated Creatinine Clearance 53 ml/min; Glucose 160 mg/dl (70-99); Potassium 4.5 mmol/L (3.5-5.1); Sodium 137 mmol/L (135-145); eGFR 48.81
--- NOTE | 2024-09-15 11:25 | CM ---
Chart reviewed. Patient is independent of ADLS, lives with his in a 3 [address], 4 [facility], 0 DME. Plan is for the patient to return home with CT Transitional RN. CM to follow
--- NOTE | 2024-09-15 11:30 | PTCARENOTE ---
Pt reassessed. Pt resting in bed. SB on tele with rates in the 50s. BP 126/69. Nitro and cardene titrated off. POX 96% on RA. Surgical sites stable. Chest tube dressing changed. Right radial kervin d/c per verbal orders, hemostasis achieved. NSS KVO
and insulin gtt continue to infuse. Ivan draining adequate amounts of deneen urine. No other acute changes.
[2024-09-15] MEDS: VITAMIN D3 (cholecalciferol) 125 MCG PO (12:55)
[2024-09-15] MEDS: AZULFIDINE 250 MG PO (12:55)
[2024-09-15] MEDS: COZAAR 50 MG PO (12:55)
[2024-09-15 12:59] LABS: Glucose - Point of Care 89 mg/dl (70-99)
--- NOTE | 2024-09-15 13:00 | PTCARENOTE ---
received patient from previous RN. AAOX3. pt reports very mild sternal pain. Pt assisted OOB to chair for lunch with 1 assist. SR/SB on telemetry heart rate in 60s. pulses palpable. +1 edema hands/feet. Pt on room air, sat 95%. lung sounds
diminished. active bowel sounds. liu draining clear deneen urine. Right IJ cordis infusing KVO. mediastinal x2 draining serosanguineous drainage to -20 suction. surgical sites CDI. see worklist for full nursing assessment and interventions.
[2024-09-15] MEDS: FERRLECIT 110 MG IV (13:30)
[2024-09-15] MEDS: PACERONE 200 MG PO ×2 (15:46→21:20)
[2024-09-15] MEDS: COLCHICINE 0.3 MG PO (17:07)
[2024-09-15] MEDS: COUMADIN 5 MG PO (17:09)
--- NOTE | 2024-09-15 17:30 | PTCARENOTE ---
pt ambulated 250 feet in [place]. pt denies pain. resting comfortably between care. no changes in assessment noted.
--- NOTE | 2024-09-15 20:07 | PTCARENOTE ---
received pt from previous rn. pt sitting in chair at the time of assessment. pt AAOx4, VSS, NSR per tele monitor HR 70s, +pulses, +rub and click auscultated, A/V wires set to VVI 25/2, pox 96% on RA lungs clear, diminished, CT Medsx2. set to -20cm
wall suction draining serosanguineous drainage no air leak, crepitus, tidaling noted. +bs, liu draining clear yellow urine, all surgical sites intact, ct dressing c/d/i. RIJ cordis infusing KVO. PIVx1 intact. plan of care discussed and questions
encouraged
[2024-09-15] MEDS: ZETIA 10 MG PO (21:20)
[2024-09-16] VITALS (19 sets, daily range): BP systolic 129–161; BP diastolic 71–88; PULSE 72; O2SAT 99–100; BMI 24.6
--- NOTE | 2024-09-16 00:04 | PTCARENOTE ---
pt resting comfortably in bed, NSR per tele monitor HR 60s. VSS assessment remains unchanged
--- NOTE | 2024-09-16 03:59 | W.PN.CT ---
Today's Communication / Plan
-
-pod #2
-no issues overnight
-in nsr 80s
-CTs output: 2 meds 155/355 in 12/24 hrs
-follow Cr - 1.0 today (1.5-1.7 on 09/15 and 1.1-1.2 preop)
-UO 1060/2065 in 12/24 hrs
-got 5 mg Coumadin on 09/15. INR today 1.46
-current meds (Coumadin, ASA, Lopressor, Amio, Zetia, Colchicine, Protonix). Holding Mg d/t RAMON
-encourage IS, OOB
Assessment / Plan
-
- Systemic inflammatory disorder, severe aortic valve insufficiency with a root aneurysm- s/p Aortic root replacement [mechanical Bentall, On-X valved conduit]; LAAE [35 mm device] by Dr. Davidson on 09/14/24, pod #2
- Intraop HITESH: LVEF preop was 55% with no significant regional wma, he did have a dilated left ventricle that was known preoperatively. Following surgery, his EF was 60% with no new regional wma. His aortic and root tissue was abnormal and very
thickened. The wall of his root was approximately 8 mm in terms of thickness. His leaflets itself were retracted with prolapsing of the left and non, with thickening of the base of the leaflet heading towards the insertion point at the annulus.
His annulus itself was quite large measuring approximately [address] scan and easily accommodating a 29 mechanical valve prosthesis.
- Severe aortic valve insufficiency
- Dilated cardiomyopathy secondary to aortic valve insufficiency
- Ankylosing spondylitis and rheumatoid arthritis - affecting the aorta and root/valve, on Sulfasalazine
- Hypertension
- Hypothyroidism
- Hyperlipidemia
- L MARILIA
- CKD 2 (Cr 1.1-1.2 preop)
- Peripheral artery disease
- Anxiety
- Aortic root aneurysm
- Non-smoker
- Acute postop blood loss anemia- stable without transfusion
- Acute postop abnormal ECG, suspect pericarditis, + rub
- RAMON on CKD
- Acute postop atelectasis
- Acute postop hypovolemia with subsequent hypervolemia
Discussed patient care with: Nursing and Care Team
Subjective
-
Date of Service: September 16, 2024
Objective Data
-
PT 17.8 Sec (11.4-14.6) H 09/14/24 12:05
INR 1.44 09/14/24 12:05
APTT 32.3 Sec (23.4-35.0) 09/14/24 12:05
Vital Signs
Vital Signs
Temp Pulse Resp BP Pulse Ox
98.3 F 65 16 130/71 94
09/16/24 00:01 09/16/24 00:02 09/16/24 00:01 09/16/24 00:02 09/16/24 00:01
CT Intake/Output/Weight
09/15/24 09/15/24 09/16/24
06:59 18:59 06:59
Intake Total 966.2 / 2250.3 326.9 / 386.9 60 / 386.9
Output Total 710 / 1430 1205 / 2390 1185 / 2390
Balance 256.2 / 820.3 -878.1 / -2002.1 -1125 / -2002.1
SaO2: 94
Physical Exam
-
General: Awake and AOx3
Cardiovascular: Regular rate & rhythm, No Murmurs and Rub
Respiratory: Decreased Breath Sounds
Sternum: Stable
Incision: Clean, Dry and Intact
Abdomen: soft, nontender, nondistended, +decreased bowel sounds
Extremities: No Edema (2+ DPs b/l)
Data Reviewed
-
Lab Results: Results Reviewed
Medications: Active Meds Reviewed
Chest X-Ray: Report Reviewed and Image Reviewed
ECG: Report Reviewed and Image Reviewed
[2024-09-16 04:12] LABS: INR 1.46; PT 18.2 Sec (11.4-14.6)
[2024-09-16 04:13] LABS: APTT 36.9 Sec (23.4-35.0)
[2024-09-16 04:17] LABS: Hematocrit 31.1 % (39.0-52.0); Hemoglobin 10.6 g/dL (13.0-18.0); Mean Corp Hgb Conc. 34.1 g/dL (33.0-37.0); Mean Corpuscular Hgb 29.8 pg (27.0-31.0); Mean Corpuscular Volume 87.4 fL (80.0-94.0); Mean Platelet Volume 11.6 fL (7.4-10.4); Platelet Count 147 10^3/uL (130-400); Red Blood Cell Count 3.56 10^6/uL (4.70-6.10); Red Cell Dist. Width 14.3 % (11.5-14.5); White Blood Cell Count 17.7 10^3/uL (4.8-10.8)
--- NOTE | 2024-09-16 04:24 | PTCARENOTE ---
routine labs obtained, VSS, NSR per tele monitor. assessment remains unchanged.
[2024-09-16 04:27] LABS: Blood Urea Nitrogen 27 mg/dl (9-20); Calcium 7.8 mg/dl (8.4-10.2); Carbon Dioxide 29 mmol/L (22-30); Chloride 106 mmol/L (98-107); Estimated Creatinine Clearance 89 ml/min; Glucose 164 mg/dl (70-99); Magnesium 2.3 mg/dl (1.6-2.3); Potassium 4.6 mmol/L (3.5-5.1); Sodium 136 mmol/L (135-145); eGFR > 60.00
[2024-09-16] MEDS: TYLENOL 1000 MG PO ×3 (06:14→21:45)
[2024-09-16] MEDS: SYNTHROID 75 MCG PO (06:14)
[2024-09-16] MEDS: PROTONIX 40 MG PO (07:49)
[2024-09-16] MEDS: LOPRESSOR 12.5 MG PO (07:49)
[2024-09-16] MEDS: LOW STRENGTH ASPIRIN 81 MG PO (07:49)
[2024-09-16] MEDS: PACERONE 200 MG PO ×3 (07:49→21:46)
[2024-09-16] MEDS: COLCHICINE 0.3 MG PO (07:49)
[2024-09-16] MEDS: NEURONTIN 100 MG PO ×3 (07:49→21:45)
[2024-09-16] MEDS: SENOKOT-S 1 TABLET PO ×2 (07:49→20:25)
[2024-09-16] MEDS: VITAMIN D3 (cholecalciferol) 125 MCG PO (07:49)
[2024-09-16] MEDS: BACTROBAN 2% OINTMENT 1 APPLIC NASAL ×2 (07:50→20:25)
[2024-09-16] MEDS: LIDOCAINE 4% PATCH TOPICAL (07:52)
--- NOTE | 2024-09-16 08:13 | W.PN.CD ---
Today's Communication / Plan
-
cont. routine post op care
Impression / Plan
-
Impression/Plan: 48M with renal artery stenosis/CKD, ankylosing spondylitis/rheumatoid arthritis, hypertension (managed by nephrology), hypercholesterolemia, and severe aortic valve insufficiency with aortic root aneurysm presents for elective
AVR/Aortic root replacement.
#Aortic root aneurysm leading to severe aortic valve insufficiency
-Chronic, progressive.
-S/P mechanical SAVR with root ( On-X valved conduit, serial #[id number]) with Dr. Davidson, 09/14/2024.
-Left atrial appendage exclusion (#35 Atriclip, serial #[id number]).
-Pre-LVEF 55% (dilated LV), post LVEF 60% without RWMA
-Because his [place] aorta tapers quite quickly into a normal caliber, only the proximal portion of his ascending was replaced
-Routine post operative care - pacing wire out today, plan for chest tube removal and cordis removal today as well
-Warfarin for mechanical SAVR per CT surgery.
-Pain/chest tube management per CT surgery.
-Incentive spirometry.
-Ambulation.
# post op chest pain
-ekg with some precordial ST changes possible suggestive of pericarditis
-patient with 1/10 chest pain
-cont. colchicine, monitor renal function
#Sinus bradycardia, resolved
#Essential hypertension
-Chronic, stable.
-Losartan restarted.
#Acute on chronic Kidney Disease/Renal artery stenosis, resolved
-Acute, creatinine up to 1.7 (baseline 1.2), now back to baseline
-90% main and accessory left renal arteries.
#Hypercholesterolemia
-Chronic, stable.
-He declined statin in the outpatient setting, cont. ezetimibe
-Consider PCSK9i as an outpatient.
#PAD
-Chronic, stable.
-Currently asymptomatic.
#RA
-Chronic, stable.
-Remains on Cosentyx.
Subjective/Interval History:
significant diuresis yesterday
BP stable.
feels well.
DATA:
Cardiac Catheterization, 07/16/2024:
CONCLUSIONS
1. Normal coronary arteries and a left dominant system with the LAD and LCx arising from separate ostia.
2. Moderately elevated LV filling pressure with no aortic stenosis.
Surgery, 09/14/2024:
Procedure(s) Performed:
1. Standard sternotomy with aortic and right atrial cannulation.
2. Left atrial appendage exclusion 35 mm device.
3. Aortic root replacement [mechanical Bentall].
4. Placement of temporary atrial ventricular pacing wires.
5. Transesophageal echocardiography.
Physical Exam
Vital Signs/Labs
Vital Signs
Temp Pulse Resp BP Pulse Ox
37.0 C 83 16 138/80 96
09/16/24 07:40 09/16/24 07:40 09/16/24 07:40 09/16/24 07:40 09/16/24 07:40
09/15/24 09/16/24 09/17/24
06:59 06:59 06:59
Actual Weight 74.7 kg 75.5 kg
09/16/24 03:32
09/16/24 03:32
PT 18.2 Sec (11.4-14.6) H 09/16/24 03:32
INR 1.46 09/16/24 03:32
APTT 36.9 Sec (23.4-35.0) H 09/16/24 03:32
Magnesium 2.3 mg/dl (1.6-2.3) 09/16/24 03:32
Physical Exam
Constitutional: Comfortable
Cardiovascular: Rhythm & rate is regular
Respiratory: Respiratory effort normal
Neuro/Psych: AO x 3
Data Reviewed
-
Date of Service: September 16, 2024
Medical Decision Making: Reviewed Test Results
EKG: Tracing Personally Visualized and interpreted
Echo: Tracing Personally Visualized and interpreted
Labs: Labs Reviewed by me
--- NOTE | 2024-09-16 08:19 | W.PN.UPDATE ---
Update Note
Progress Note Update
Patient has not required pacing wires. There has been no bradycardia, arrhythmias, complete heart block, or significant pauses.
Site was cleansed with CHG thoroughly
2 atrial and 1 ventricular epicardial pacing wires were pulled at the skin. Bedrest x1 hour and VS [id number] x 4.
If there is no significant CT drainage, will pull mediastinal CTs in 3 hours
Barb MEEKS
Cardiac Surgery
--- NOTE | 2024-09-16 08:48 | PTCARENOTE ---
assumed care of pt from previous shift RN, sinus rhythm on tele, VSS. Epicardial pacing wires pulled bt CT GAMA. Lungs diminished, pox 96-98% on RA. +bs, tolerating po intake, liu catheter draining yellow. CT w minimal amount of drainage. Surgical
sites stable. Cordis and PIV flush easily. Pt denies pain. Plan of care reviewed and questions encouraged.
[2024-09-16 09:28] LABS: APTT 33.5 Sec (23.4-35.0)
--- NOTE | 2024-09-16 11:30 | PTCARENOTE ---
Mediastinal CTs and liu removed as ordered.
[2024-09-16] MEDS: KCL 10 MEQ PO (11:40)
[2024-09-16] MEDS: NSS 500 IV (11:40)
[2024-09-16] MEDS: LASIX 20 MG IV (11:40)
[2024-09-16] MEDS: FERRLECIT 110 MG IV (13:13)
[2024-09-16] MEDS: COUMADIN 5 MG PO (16:37)
--- NOTE | 2024-09-16 16:49 | PTCARENOTE ---
VSS, pt ambulating in hallway without complaint.
--- NOTE | 2024-09-16 20:05 | PTCARENOTE ---
received pt from previous rn. AAOx4, VSS, NSR per tele monitor, HR 80s. +pulses, pox 96% on RA lungs clear, diminished, +bs, patient voiding clear yellow urine in urinal, all surgical incisions intact, RIJ cordis infusing KVO, PIV intact. pt
ambulating in room and hallway w/ . plan of care discussed, questions encouraged
[2024-09-16] MEDS: LOPRESSOR 25 MG PO (20:25)
[2024-09-16] MEDS: ZETIA 10 MG PO (21:45)
[2024-09-16] MEDS: HEPARIN 25000 UNITS/250 ML IV (23:53)
[2024-09-17] VITALS (11 sets, daily range): BP systolic 116–178; BP diastolic 72–97; O2SAT 100; BMI 23.9
--- NOTE | 2024-09-17 00:14 | PTCARENOTE ---
Heparin gtt started. See JUN. NSR per tele monitor Hr 70s, VSS, assessment remains unchanged
--- NOTE | 2024-09-17 04:34 | PTCARENOTE ---
NSR per tele monitor HR 70s, VSS, assessment remains unchanged
[2024-09-17] MEDS: TYLENOL 1000 MG PO ×3 (05:37→21:12)
[2024-09-17] MEDS: SYNTHROID 75 MCG PO (05:37)
[2024-09-17 05:56] LABS: Hematocrit 31.2 % (39.0-52.0); Hemoglobin 10.4 g/dL (13.0-18.0); Mean Corp Hgb Conc. 33.3 g/dL (33.0-37.0); Mean Corpuscular Hgb 29.4 pg (27.0-31.0); Mean Corpuscular Volume 88.1 fL (80.0-94.0); Mean Platelet Volume 10.7 fL (7.4-10.4); Platelet Count 144 10^3/uL (130-400); Red Blood Cell Count 3.54 10^6/uL (4.70-6.10); Red Cell Dist. Width 14.4 % (11.5-14.5); White Blood Cell Count 11.7 10^3/uL (4.8-10.8)
[2024-09-17 06:00] LABS: INR 1.69; PT 20.4 Sec (11.4-14.6)
[2024-09-17 06:14] LABS: Blood Urea Nitrogen 16 mg/dl (9-20); Calcium 8.5 mg/dl (8.4-10.2); Carbon Dioxide 31 mmol/L (22-30); Chloride 107 mmol/L (98-107); Estimated Creatinine Clearance 99 ml/min; Glucose 113 mg/dl (70-99); Sodium 140 mmol/L (135-145); eGFR > 60.00
[2024-09-17 06:43] LABS: APTT 51.2 Sec (23.4-35.0)
[2024-09-17] MEDS: BACTROBAN 2% OINTMENT 1 APPLIC NASAL ×2 (07:38→19:48)
[2024-09-17] MEDS: LOPRESSOR 25 MG PO (07:38)
[2024-09-17] MEDS: NEURONTIN 100 MG PO ×3 (07:38→21:13)
[2024-09-17] MEDS: COLCHICINE 0.3 MG PO (07:38)
[2024-09-17] MEDS: VITAMIN D3 (cholecalciferol) 125 MCG PO (07:38)
[2024-09-17] MEDS: PROTONIX 40 MG PO (07:38)
[2024-09-17] MEDS: LIDOCAINE 4% PATCH TOPICAL (07:39)
[2024-09-17] MEDS: PACERONE 200 MG PO ×3 (07:39→21:13)
[2024-09-17] MEDS: LOW STRENGTH ASPIRIN 81 MG PO (07:39)
[2024-09-17] MEDS: SENOKOT-S 1 TABLET PO ×2 (07:39→19:48)
--- NOTE | 2024-09-17 07:54 | PTCARENOTE ---
pt aaox3. states min pain only wants tylenol. oob in chair. reviewed plan of care and coumadin teaching. pt on heparin gtt as ordered. sternal wound c/d rotary drier feeder. ct dressing intact. right ij cordis in place with kvo. pt bp elevated MD/SUPER[employer] at
bedside aware.
--- NOTE | 2024-09-17 08:49 | W.PN.CT ---
Today's Communication / Plan
-
-pod #3
-doing well, no issues overnight
-low-dose iv Heparin started at midnight
-got 5 mg Coumadin on 09/15 and 09/16. INR today 1.69
-Cr is at baseline 0.9
-weaned off O2 - pOx 98% on RA
-UO 1750/3200 in 12/24 hrs
-encourage IS, OOB
Assessment / Plan
-
- Systemic inflammatory disorder, severe aortic valve insufficiency with a root aneurysm- s/p Aortic root replacement [mechanical Bentall, On-X valved conduit]; LAAE [35 mm device] by Dr. Davidson on 09/14/24, pod #3
- Intraop HITESH: LVEF preop was 55% with no significant regional wma, he did have a dilated left ventricle that was known preoperatively. Following surgery, his EF was 60% with no new regional wma. His aortic and root tissue was abnormal and very
thickened. The wall of his root was approximately 8 mm in terms of thickness. His leaflets itself were retracted with prolapsing of the left and non, with thickening of the base of the leaflet heading towards the insertion point at the annulus.
His annulus itself was quite large measuring approximately [address] scan and easily accommodating a 29 mechanical valve prosthesis.
- Severe aortic valve insufficiency
- Dilated cardiomyopathy secondary to aortic valve insufficiency
- Ankylosing spondylitis and rheumatoid arthritis - affecting the aorta and root/valve, on Sulfasalazine
- Hypertension
- Hypothyroidism
- Hyperlipidemia
- L MARILIA
- CKD 2 (Cr 1.1-1.2 preop)
- Peripheral artery disease
- Anxiety
- Aortic root aneurysm
- Non-smoker
- Acute postop blood loss anemia- stable without transfusion
- Acute postop abnormal ECG, suspect pericarditis, + rub
- RAMON on CKD
- Acute postop atelectasis
- Acute postop hypovolemia with subsequent hypervolemia
- Coumadin anticoagulation
Discussed patient care with: Nursing and Care Team
Subjective
-
Date of Service: September 17, 2024
Objective Data
-
Lab Results
09/17/24 05:36
09/17/24 05:36
PT 20.4 Sec (11.4-14.6) H 09/17/24 05:36
INR 1.69 09/17/24 05:36
APTT Cancelled 09/17/24 06:32
Vital Signs
Vital Signs
Temp Pulse Resp BP Pulse Ox
98.1 F 78 18 178/92 97
09/17/24 07:48 09/17/24 07:48 09/17/24 07:48 09/17/24 07:48 09/17/24 07:[address]
CT Intake/Output/Weight
09/16/24 09/17/24 09/17/24
18:59 06:59 18:59
Intake Total 140 / 175 35 / 175
Output Total 2660 / 5060 2400 / 5060 675 / 675
Balance -2520 / -4885 -2365 / -4885 -675 / -675
SaO2: 97
Physical Exam
-
General: Awake and AOx3
Cardiovascular: Regular rate & rhythm, No Murmurs and No Rub
Respiratory: Decreased Breath Sounds
Sternum: Stable
Incision: Clean, Dry and Intact
Extremities: No Edema (2+ DPs b/l)
Abdomen: soft, nontender, nondistended, + bowel sounds
Data Reviewed
-
Lab Results: Results Reviewed
Medications: Active Meds Reviewed
Chest X-Ray: Report Reviewed and Image Reviewed
ECG: Report Reviewed and Image Reviewed
[2024-09-17] MEDS: COZAAR 50 MG PO ×2 (09:34→19:51)
[2024-09-17] MEDS: LOPRESSOR 12.5 MG PO (09:51)
[2024-09-17] MEDS: FERRLECIT 110 MG IV (13:50)
[2024-09-17] MEDS: AZULFIDINE 250 MG PO (13:50)
[2024-09-17] MEDS: NSS 500 IV (13:50)
--- NOTE | 2024-09-17 15:15 | PTCARENOTE ---
Assumed care of pt at approximately 1500. AAOx3. Heparin gtt infusing per order. Sternal incision approximated w/ surgical adhesive present. CT dressings CDI. R IJ cordis infusing KVO. Pt ambulating halls independently at this time.
[2024-09-17] MEDS: COUMADIN 7.5 MG PO (17:18)
--- NOTE | 2024-09-17 18:01 | W.PN.CD ---
Today's Communication / Plan
-
doing well ahead of planned d/c tomorrow
if additional BP reduction required can increase losartan dose or initiate amlodipine, further titration will be done on outpatient basis
Impression / Plan
-
Impression/Plan: 48M with renal artery stenosis/CKD, ankylosing spondylitis/rheumatoid arthritis, hypertension (managed by nephrology), hypercholesterolemia, and severe aortic valve insufficiency with aortic root aneurysm presents for elective
AVR/Aortic root replacement.
#Aortic root aneurysm leading to severe aortic valve insufficiency
-Chronic, progressive.
-S/P mechanical SAVR with root ( On-X valved conduit, serial #[id number]) with Dr. Davidson, 09/14/2024.
-Left atrial appendage exclusion (#35 Atriclip, serial #[id number]).
-Pre-LVEF 55% (dilated LV), post LVEF 60% without RWMA
-Because his [place] aorta tapers quite quickly into a normal caliber, only the proximal portion of his ascending was replaced
-Routine post operative care - pacing wires and chest tubes out, cordis in for blood draw
-Warfarin for mechanical SAVR per CT surgery.
-Incentive spirometry
-Ambulation.
# post op chest pain
-ekg with some precordial ST changes possible suggestive of pericarditis, resolving
-patient with 1/10 chest pain
-cont. colchicine, monitor renal function
#Sinus bradycardia, resolved
#Essential hypertension
-Chronic, stable.
-Losartan restarted. Resume home antihypertensive regimen as tolerated
#Acute on chronic Kidney Disease/Renal artery stenosis, resolved
-Acute, creatinine up to 1.7 (baseline 1.2), now back to baseline
-90% main and accessory left renal arteries.
#Hypercholesterolemia
-Chronic, stable.
-He declined statin in the outpatient setting, cont. ezetimibe
-Consider PCSK9i as an outpatient.
#PAD
-Chronic, stable.
-Currently asymptomatic.
#RA
-Chronic, stable.
-Remains on Cosentyx.
Subjective/Interval History:
BP hypertensive
feels well
DATA:
Cardiac Catheterization, 07/16/2024:
CONCLUSIONS
1. Normal coronary arteries and a left dominant system with the LAD and LCx arising from separate ostia.
2. Moderately elevated LV filling pressure with no aortic stenosis.
Surgery, 09/14/2024:
Procedure(s) Performed:
1. Standard sternotomy with aortic and right atrial cannulation.
2. Left atrial appendage exclusion 35 mm device.
3. Aortic root replacement [mechanical Bentall].
4. Placement of temporary atrial ventricular pacing wires.
5. Transesophageal echocardiography.
Physical Exam
Vital Signs/Labs
Vital Signs
Temp Pulse Resp BP Pulse Ox
36.9 C 74 18 152/80 99
09/17/24 16:22 09/17/24 16:22 09/17/24 16:22 09/17/24 16:22 09/17/24 16:22
09/16/24 09/17/24 09/18/24
06:59 06:59 06:59
Actual Weight 75.5 kg 73.3 kg
09/17/24 05:36
09/17/24 05:36
PT 20.4 Sec (11.4-14.6) H 09/17/24 05:36
INR 1.69 09/17/24 05:36
APTT 53.0 Sec (23.4-35.0) H 09/17/24 11:36
Magnesium 2.0 mg/dl (1.6-2.3) 09/17/24 05:36
Physical Exam
Constitutional: No acute distress
Cardiovascular: Rhythm & rate is regular
Respiratory: Respiratory effort normal
Neuro/Psych: AO x 3
Data Reviewed
-
Date of Service: September 17, 2024
Medical Decision Making: Reviewed Test Results
Labs: Labs Reviewed by me
[2024-09-17] MEDS: LOPRESSOR 50 MG PO (19:49)
[2024-09-17] MEDS: ZETIA 10 MG PO (21:13)
--- NOTE | 2024-09-17 21:34 | PTCARENOTE ---
Received pt at shift change; AAOx3, offers no complaints. Heparin gtt @ 500 units/hr, per order, R cordis with 10mL/hr KVO. NSR on the monitor, no edema noted, +pulses. Tolerating RA with SpO2 99%, lungs clear. +BS, pt states BM this afternoon,
denies nausea or issues with appetite. Pt ambulating independently without issue. CT removal dressings C/D/I, sternal wound well approximated with surgical glue, surrounding skin intact. Peripheral INT redressed, PM hygiene performed. Pt updated on
POC for the shift, resting comfortably in bed at this time, call coreas within reach.
--- NOTE | 2024-09-18 04:34 | W.PN.CT ---
Today's Communication / Plan
-
Plan:
-No major issues overnight. Hemodynamically and neurologically intact
-On heparin to Coumadin bridge
-INR
-D/C cordis
-BP has been high postop with ongoing adjustments to antihypertensive meds (Lopressor and Losartan has been increased)
-Cont. ASA, Synthroid, Amiodarone, Lopressor, Losartan, Zetia
-F/U 2-view cxr
-Encourage use of IS
-OOB into chair/Ambulate
-Home today
Assessment / Plan
-
- Systemic inflammatory disorder, severe aortic valve insufficiency with a root aneurysm- s/p Aortic root replacement [mechanical Bentall, On-X valved conduit]; LAAE [35 mm device] by Dr. Davidson on 09/14/24, pod #4
- Intraop HITESH: LVEF preop was 55% with no significant regional wma, he did have a dilated left ventricle that was known preoperatively. Following surgery, his EF was 60% with no new regional wma. His aortic and root tissue was abnormal and very
thickened. The wall of his root was approximately 8 mm in terms of thickness. His leaflets itself were retracted with prolapsing of the left and non, with thickening of the base of the leaflet heading towards the insertion point at the annulus.
His annulus itself was quite large measuring approximately [address] scan and easily accommodating a 29 mechanical valve prosthesis.
- Severe aortic valve insufficiency
- Dilated cardiomyopathy secondary to aortic valve insufficiency
- Ankylosing spondylitis and rheumatoid arthritis - affecting the aorta and root/valve, on Sulfasalazine
- Hypertension
- Hypothyroidism
- Hyperlipidemia
- L MARILIA
- CKD 2 (Cr 1.1-1.2 preop)
- Peripheral artery disease
- Anxiety
- Aortic root aneurysm
- Non-smoker
- Acute postop blood loss anemia- stable without transfusion
- Acute postop abnormal ECG, suspect pericarditis, + rub
- RAMON on CKD
- Acute postop atelectasis
- Acute postop hypovolemia with subsequent hypervolemia
- Coumadin anticoagulation
Discussed patient care with: Cardiology, Nursing, Respiratory Therapy, Pharmacy and Care Team
Subjective
-
Date of Service: September 18, 2024
C/O mild incisional pain, otherwise feels well
Objective Data
-
PT 20.4 Sec (11.4-14.6) H 09/17/24 05:36
INR 1.69 09/17/24 05:36
APTT 53.0 Sec (23.4-35.0) H 09/17/24 11:36
Vital Signs
Vital Signs
Temp Pulse Resp BP Pulse Ox
98.4 F 70 18 128/78 99
09/17/24 23:10 09/18/24 02:00 09/17/24 16:22 09/17/24 23:16 09/17/24 20:43
CT Intake/Output/Weight
09/17/24 09/17/24 09/18/24
06:59 18:59 06:59
Intake Total 35 / 175 480 / 480
Output Total 2400 / 5060 875 / 875
Balance -2365 / -4885 -875 / -395 480 / -395
SaO2: 99 (RA)
Physical Exam
-
General: Awake, Oriented and AOx3
Cardiovascular: Regular rate & rhythm, No Murmurs, No Rub and No Gallop
Respiratory: Decreased Breath Sounds (at bases, otherwise clear)
Sternum: Stable
Incision: Clean, Dry, Intact and Dressing Intact
Extremities: Other (+trace edema)
Data Reviewed
-
Lab Results: Results Reviewed
Medications: Active Meds Reviewed
Chest X-Ray: Report Reviewed and Image Reviewed
ECG: Report Reviewed and Image Reviewed
[2024-09-18] MEDS: SYNTHROID 75 MCG PO (05:26)
[2024-09-18] MEDS: TYLENOL 1000 MG PO (05:26)
[2024-09-18 05:28] VITALS: BP 141/87
[2024-09-18 05:32] VITALS: BMI 23.2
[2024-09-18 06:09] LABS: APTT 61.6 Sec (23.4-35.0); INR 2.35; PT 25.8 Sec (11.4-14.6)
[2024-09-18 06:23] LABS: Hematocrit 32.1 % (39.0-52.0); Hemoglobin 10.8 g/dL (13.0-18.0); Mean Corp Hgb Conc. 33.6 g/dL (33.0-37.0); Mean Corpuscular Hgb 29.8 pg (27.0-31.0); Mean Corpuscular Volume 88.4 fL (80.0-94.0); Mean Platelet Volume 10.8 fL (7.4-10.4); Platelet Count 176 10^3/uL (130-400); Red Blood Cell Count 3.63 10^6/uL (4.70-6.10); Red Cell Dist. Width 14.2 % (11.5-14.5); White Blood Cell Count 10.2 10^3/uL (4.8-10.8)
[2024-09-18 06:29] LABS: Blood Urea Nitrogen 16 mg/dl (9-20); Calcium 8.9 mg/dl (8.4-10.2); Carbon Dioxide 32 mmol/L (22-30); Chloride 108 mmol/L (98-107); Estimated Creatinine Clearance 99 ml/min; Glucose 100 mg/dl (70-99); Sodium 142 mmol/L (135-145); eGFR > 60.00
[2024-09-18 08:01] VITALS: BP 144/85
[2024-09-18] MEDS: SENOKOT-S 1 TABLET PO (08:04)
[2024-09-18] MEDS: LOW STRENGTH ASPIRIN 81 MG PO (08:04)
[2024-09-18] MEDS: BACTROBAN 2% OINTMENT 1 APPLIC NASAL (08:04)
[2024-09-18] MEDS: COZAAR 100 MG PO (08:05)
[2024-09-18] MEDS: PROTONIX 40 MG PO (08:05)
[2024-09-18] MEDS: VITAMIN D3 (cholecalciferol) 125 MCG PO (08:05)
[2024-09-18] MEDS: NEURONTIN 100 MG PO (08:05)
[2024-09-18] MEDS: LIDOCAINE 4% PATCH TOPICAL (08:05)
[2024-09-18] MEDS: LOPRESSOR 50 MG PO (08:05)
[2024-09-18] MEDS: COLCHICINE 0.3 MG PO (08:05)
[2024-09-18] MEDS: PACERONE 200 MG PO (08:05)
[2024-09-18] MEDS: NSS IV (10:14)
[2024-09-18 10:20] VITALS: BP 117/84; BP 129/68; PULSE 64; O2SAT 98; O2SAT 99
--- NOTE | 2024-09-18 10:38 | W.DCSUMMARY ---
Discharge Summary
Discharge Data
Date of Admission: 09/14/24
Date of Discharge: 09/18/24
-
Pending Results: No
Hospital Course
Primary care physician: Dr. Roberto Arreola MD
Outpatient director of public safety: Dr. Ralph Benavidez MD
Inpatient consultants: [facility] Cardiology, Pulmonary Medicine (Ad Compositor)
Procedures:
1. Aortic Root Replacement [mechanical Bentall, On-X valved conduit]; LAAE [35 mm device] by Dr. Davidson on 09/14/24
Primary Diagnosis:
1. Severe Aortic Valve Insufficiency with Aortic Root Aneurysm
Secondary Diagnoses:
1. Dilated Cardiomyopathy secondary to AI
2. Hypertension
3. Hypothyroidism
4. Hyperlipidemia
5. CKD Stage 2 (Cr 1.1-1.2 pre-op)
6. PAD
7. Anxiety
8. Ankylosing spondylitis
9. Rheumatoid arthritis
HPI: Mr. Lozano is a 48-year-old male with a PMHx of severe AI, dilated cardiomyopathy secondary to AI, aortic root aneurysm and systemic inflammatory disorders who presented electively on 09/14/24 and underwent Aortic Root Replacement with
mechanical Bentall, / on-X valved conduit, and LAAE with [address] Oumar Davidson.
Hospital course: Patient was admitted on 09/14/24 and underwent an Aortic Root Replacement with mechanical Bentall, on-X valved conduit, and LAAE with [address] Oumar Davidson. On day of surgery, he recovered within the CVICU.
Post-operative EKG indicated pericarditis in which he was started on Colchicine. Warfarin was initiated within the evening of post-operative day 1 for his mechanical valve. Heparin drip was initiated on post-operative day 2 as bridge therapy to
therapeutic INR (2.0-3.0) with warfarin. Patient was noted to be hypertensive during his recovery in which his home regiment of losartan was increased from 50 mg daily to 100 mg daily. On post-operative 4, patient was ambulating in halls, tolerating
diet, with INR of 2.35. Routine 2-view CXR showed small left pleural effusion in which he was given 40 mg PO Lasix. He was discharged to home with plan for Transitional Care Nursing to follow-up on Friday09/20/24 and follow-up appointment with "Adele"Lety in 4-weeks from surgery. He has an outpatient follow-up with Cardiology.
Home medication changes:
- Increased:
- Losartan increased from 50 mg daily 100 mg daily
- Addition:
- Colchicine 0.3 mg daily for 30-days.
- Coumadin 5 mg daily for goal INR 2.0-3.0 for first 3-months following surgery then goal INR 1.5- 2.0.
- Aspirin 81 mg daily.
- Metoprolol Tartrate 50 mg twice a day.
- Post-operative pain management:
- Gabapentin 100 mg TID.
- Acetaminophen 650 mg Q6H PRN for mild pain/fever/headache.
- Oxycodone 5 mg Q6H PRN for moderate-severe pain.
- Holding:
- Cosentyx to be held. Next dose to be in October of 2024.
- [place] 3 fatty-acid on hold, can restart as directed by Geoscience Specialist.
Discharge Plan
-
Patient Disposition: Home (Routine Discharge)
Discharge Diagnosis/Procedures: Severe Aortic Valve Insufficiency with Aortic Root Aneurysm s/p Aortic Root Replacement (mechanical Bentall, on X valve conduit); Left Atrial Appendage Exclusion (35 mm) with Dr. Oumar Davidson on 09/14/24.
Condition: Good
Diet: Regular
Activity: No strenuous activity
Driving Restrictions: Not until seen by your Dr
Bathing Restrictions: OK to Shower
Blood Work: Transitional Care Nurse to check INR on Friday09/20/24
Other Services: Cardiac Rehab
Specialty Instructions: Weigh Daily- Call MD for wt gain/loss 3 lbs overnight/5 lbs in 1 week
Activity Restrictions/Additional Instructions:
ACTIVITY:
-No strenuous activity: no heavy lifting, pushing, pulling anything over 15 pounds for one month
-continue to use stairs as tolerated
DRIVING RESTRICTIONS:
-No driving for one month or until approved by your surgeon
WOUND CARE:
-Shower daily. Use soap & water.
-No lotions, creams or powders on incision area.
DIET:
-continue a low fat/low cholesterol diet.
-IF you are diabetic, continue carb controlled diet.
CARDIAC REHAB:
-Please make appointment to start in 5-6 weeks with your local hospital program. (See Cardiac Rehabilitation Discharge Booklet).
SPECIALTY INSTRUCTIONS:
-Weigh yourself daily. Call your physician for any weight gain/loss of 3 lbs overnight or 5 lbs in one week.
-REPORT any clicking noise or uneven appearance of your sternum to your surgeon immediately.
-If you smoke, you are instructed to quit. The [place] smoking hotline phone number is [phone]
Referrals:
CT Transitional Care Nurse [Outside]
Referral Note: The Cardiothoracic Transitional Care Nurse will call you to set up a visit in 1-2 days.
[facility] Cardiac Re[facility] [Outside]
Referral Note: Cardiac Rehab Orientation appointment is on Saturday, October 19, 2024@ 1:00pm.
The Cardiac Rehab gym is located on the first floor of the [facility].
Cheli Perez CRNP [Specified Professional Personl, Cardiology] - 10/27/24 10:40 am
Roberto Arreola MD [Family Provider, Internal Medicine]
Oumar Davidson MD [Active, Cardiac Surgery] - 10/18/24 1:15 pm
Additional Discharge Medication Instructions: - Your goal INR is 2-3 for the first 3 months following surgery. Following the 3-month period, your new INR goal will be 1.5-2.0 with continuation of Aspirin 81 mg daily.
- Please note that your Losartan (Cozaar) dose has increased to 100 mg daily.
- You will be taking Colchicine 0.3 mg daily for 30-days then discontinue.
Prescriptions:
New
warfarin [Jantoven] 5 mg Tablet
5 mg PO .Nightly 30 Days Qty: 30 0RF
metoprolol tartrate 50 mg Tablet
50 mg PO Q12 30 Days Qty: 60 0RF
colchicine 0.6 mg Tablet
0.3 mg PO DAILY Qty: 15 0RF
aspirin 81 mg Tablet,Chewable
81 mg PO DAILY Qty: 0 0RF
acetaminophen 325 mg Tablet
650 mg PO Q6HPRN PRN (Reason: mild pain,headache,temp >101F ) Qty: 0 0RF
gabapentin 100 mg Capsule
100 mg PO TID Qty: 60 0RF
oxycodone 5 mg Tablet
5 mg PO Q6HPRN PRN (Reason: moderate-severe pain) Qty: 10 0RF
losartan 100 mg tablet
100 mg PO DAILY 30 Days Qty: 30 0RF
Continued
sulfasalazine 500 mg Tablet
0.5 g PO Q48H
levothyroxine [Synthroid] 75 mcg Tablet
75 mcg PO DAILY
magnesium 200 mg Tablet
400 mg PO HS
ezetimibe 10 mg Tablet
10 mg PO HS
coenzyme Q10 [CoQ-10] 100 mg Capsule
200 mg PO DAILY
cholecalciferol (vitamin D3) [Vitamin D3] 125 mcg (5,000 unit) Tablet
125 mcg PO DAILY
turmeric 400 mg Capsule
400 mg PO DAILY
magnesium citrate 100 mg Tablet
500 mg PO DAILY
fozgvyujh-nfavtjyt-umzjopsb-AA 40-80-400 mg Capsule
1 cap PO DAILY
Held
[place]-3 Fish Oil 910-1,400 mg Capsule
1 cap PO DAILY
Hold Instructions: Resume on 10/18/24. Resume as determined by your Geoscience Specialist
Cosentyx 150 mg/mL Syringe
150 mg SC MONTHLY
Hold Instructions: Resume on 10/23/24. Hold monthly dose for September, can resume in October.
Discontinued
losartan 50 mg Tablet
50 mg PO DAILY
Discharge Orders:
Discharge Patient (As Directed); Ordered 09/18/24
Ordered By: Amanda Esparza
Care Plan Goals
Care Plan Goals:
Problem: Readiness for enhanced knowledge related to diagnosis and treatment plan
Goal: Understand your diagnosis and treatment plan needs, including medications if applicable.
Instructions: Know your diagnosis, underlying causes and treatment plan options, including medications if applicable. Consult with your health care team to learn about your diagnosis and treatment plan, including medications if applicable.
Discharge Date and Time
Print Language: ESTONIAN
[2024-09-18] MEDS: KCL 20 MEQ PO (11:02)
[2024-09-18] MEDS: LASIX 40 MG PO (11:02)
--- NOTE | 2024-09-18 13:20 | PTCARENOTE ---
Discharge paperwork reviewed with pt and at bedside. PIV removed. Pt transported to exit via wheelchair by RN to be transported home in private vehicle by spouse.
== END 2024-09-18 13:22 | disposition home or self-care (01) | DRG 220 ==
LOC: CVICU 05:15
PROVIDERS: Anesthesiology; Nurse Practitioner; ADMITTING PHYSICIAN Thoracic Surgery (Cardiothoracic Vascular Surgery); CONSULT PHYSICIAN Internal Medicine; FAMILY PHYSICIAN Internal Medicine
PROC: B24BZZ4 Ultrasonography of Heart with Aorta, Transesophageal (ICD-10-PCS; 2024-09-14)
PROC: 5A1221Z Performance of Cardiac Output, Continuous (ICD-10-PCS; 2024-09-14)
PROC: 02RF0JZ Replacement of Aortic Valve with Synthetic Substitute, Open Approach (ICD-10-PCS; 2024-09-14)
PROC: 02L70CK Occlusion of Left Atrial Appendage with Extraluminal Device, Open Approach (ICD-10-PCS; 2024-09-14)
PROC: 02RX0JZ Replacement of Thoracic Aorta, Ascending/Arch with Synthetic Substitute, Open Approach (ICD-10-PCS; 2024-09-14)
DX: I35.1 Nonrheumatic aortic (valve) insufficiency (principal); D62 Acute posthemorrhagic anemia; I31.8 Other specified diseases of pericardium; I42.0 Dilated cardiomyopathy; Q25.43 Congenital aneurysm of aorta; J90 Pleural effusion, not elsewhere classified; N17.9 Acute kidney failure, unspecified; J98.11 Atelectasis; R00.1 Bradycardia, unspecified; E86.1 Hypovolemia; E87.70 Fluid overload, unspecified; M06.9 Rheumatoid arthritis, unspecified; M45.9 Ankylosing spondylitis of unspecified sites in spine; N18.2 Chronic kidney disease, stage 2 (mild); I12.9 Hypertensive chronic kidney disease with stage 1 through stage 4 chronic kidney disease, or unspecified chronic kidney disease; E03.9 Hypothyroidism, unspecified; E78.00 Pure hypercholesterolemia, unspecified; I73.9 Peripheral vascular disease, unspecified; I70.1 Atherosclerosis of renal artery; F41.9 Anxiety disorder, unspecified
CPT/HCPCS: 88304; 88305; 88311; 36415; 71045; 71046; 80048; 80053; 81003; 81015; 82248; 82330; 82565; 82805; 82810; 82947; 82962; 83036; 83735; 84132; 84302; 84520; 85014; 85018; 85025; 85027; 85049; 85610; 85730; 86850; 86900; 86901; 86920; 87070; 93005; 93312; 93320; 93325; 94002; J2916

== ENCOUNTER → 2024-09-27 08:39 | Outpatient (REF) | payer OTHER, SELFPAY ==
[2024-09-27 09:25] LABS: INR 1.13; PT 14.8 Sec (11.4-14.6)
== END ==
LOC: REG 08:39
PROVIDERS: ATTENDING PHYSICIAN Student in an Organized Health Care Education/Training Program; FAMILY PHYSICIAN Internal Medicine
DX: Z95.2 Presence of prosthetic heart valve (principal)
CPT/HCPCS: 36415; 85610

== ENCOUNTER → 2024-09-30 08:54 | Outpatient (REF) | payer OTHER, SELFPAY ==
[2024-09-30 09:42] LABS: INR 1.17; PT 15.2 Sec (11.4-14.6)
== END ==
LOC: REG 08:54
PROVIDERS: ATTENDING PHYSICIAN Student in an Organized Health Care Education/Training Program; FAMILY PHYSICIAN Internal Medicine
DX: Z95.2 Presence of prosthetic heart valve (principal)
CPT/HCPCS: 36415; 85610

== ENCOUNTER → 2024-10-01 08:26 | Outpatient (REF) | payer OTHER, SELFPAY ==
[2024-10-01 09:34] LABS: INR 1.23; PT 15.8 Sec (11.4-14.6)
== END ==
LOC: REG 08:26
PROVIDERS: ATTENDING PHYSICIAN Internal Medicine; FAMILY PHYSICIAN Internal Medicine
DX: Z95.2 Presence of prosthetic heart valve (principal)
CPT/HCPCS: 36415; 85610

== ENCOUNTER → 2024-10-02 07:43 | Outpatient (REF) | payer OTHER, SELFPAY ==
[2024-10-02 09:16] LABS: INR 1.34; PT 16.8 Sec (11.4-14.6)
== END ==
LOC: REG 07:43
PROVIDERS: ATTENDING PHYSICIAN Internal Medicine; FAMILY PHYSICIAN Internal Medicine
DX: Z95.2 Presence of prosthetic heart valve (principal)
CPT/HCPCS: 36415; 85610

== ENCOUNTER → 2024-10-04 09:11 | Outpatient (REF) | payer OTHER, SELFPAY ==
[2024-10-04 10:37] LABS: INR 1.41; PT 17.5 Sec (11.4-14.6)
== END ==
LOC: REG 09:11
PROVIDERS: ATTENDING PHYSICIAN Student in an Organized Health Care Education/Training Program; FAMILY PHYSICIAN Internal Medicine
DX: Z95.2 Presence of prosthetic heart valve (principal)
CPT/HCPCS: 36415; 85610

== ENCOUNTER → 2024-10-06 08:21 | Outpatient (REF) | payer OTHER, SELFPAY ==
[2024-10-06 09:23] LABS: INR 1.51; PT 18.7 Sec (11.4-14.6)
== END ==
LOC: REG 08:21
PROVIDERS: ATTENDING PHYSICIAN Student in an Organized Health Care Education/Training Program; FAMILY PHYSICIAN Internal Medicine
DX: Z95.2 Presence of prosthetic heart valve (principal)
CPT/HCPCS: 36415; 85610

== ENCOUNTER → 2024-10-08 08:46 | Outpatient (REF) | payer OTHER, SELFPAY ==
[2024-10-08 09:28] LABS: INR 1.81; PT 21.1 Sec (11.4-14.6)
== END ==
LOC: REG 08:46
PROVIDERS: ATTENDING PHYSICIAN Student in an Organized Health Care Education/Training Program; FAMILY PHYSICIAN Internal Medicine
DX: Z95.2 Presence of prosthetic heart valve (principal)
CPT/HCPCS: 36415; 85610

== ENCOUNTER → 2024-10-11 06:48 | Outpatient (REF) | payer OTHER, SELFPAY ==
[2024-10-11 07:32] LABS: INR 2.13
== END ==
LOC: REG 06:48
PROVIDERS: ATTENDING PHYSICIAN Student in an Organized Health Care Education/Training Program; FAMILY PHYSICIAN Internal Medicine
DX: Z95.2 Presence of prosthetic heart valve (principal)
CPT/HCPCS: 36415; 85610

== ENCOUNTER → 2024-10-14 08:55 | Outpatient (REF) | payer OTHER, SELFPAY ==
[2024-10-14 09:28] LABS: INR 2.24; PT 25.2 Sec (11.4-14.6)
== END ==
LOC: REG 08:55
PROVIDERS: ATTENDING PHYSICIAN Student in an Organized Health Care Education/Training Program
DX: Z95.2 Presence of prosthetic heart valve (principal)
CPT/HCPCS: 36415; 85610

== ENCOUNTER → 2024-10-18 07:28 | Outpatient (REF) | payer OTHER, SELFPAY ==
[2024-10-18 08:48] LABS: INR 2.75; PT 29.0 Sec (11.4-14.6)
== END ==
LOC: REG 07:28
PROVIDERS: ATTENDING PHYSICIAN Student in an Organized Health Care Education/Training Program
DX: Z95.2 Presence of prosthetic heart valve (principal)
CPT/HCPCS: 36415; 85610

== ENCOUNTER → 2024-10-25 07:13 | Outpatient (REF) | payer OTHER, SELFPAY ==
[2024-10-25 08:21] LABS: INR 3.26; PT 33.1 Sec (11.4-14.6)
== END ==
LOC: REG 07:13
PROVIDERS: ATTENDING PHYSICIAN Student in an Organized Health Care Education/Training Program
DX: Z95.2 Presence of prosthetic heart valve (principal)
CPT/HCPCS: 36415; 85610

== ENCOUNTER → 2024-11-01 07:09 | Outpatient (REF) | payer OTHER, SELFPAY ==
[2024-11-01 08:21] LABS: INR 2.19; PT 24.4 Sec (11.4-14.6)
== END ==
LOC: REG 07:09
PROVIDERS: ATTENDING PHYSICIAN Student in an Organized Health Care Education/Training Program
DX: Z95.2 Presence of prosthetic heart valve (principal)
CPT/HCPCS: 36415; 85610

== ENCOUNTER → 2024-11-08 07:26 | Outpatient (REF) | payer OTHER, SELFPAY ==
[2024-11-08 08:40] LABS: INR 2.38; PT 26.4 Sec (11.4-14.6)
== END ==
LOC: REG 07:26
PROVIDERS: ATTENDING PHYSICIAN Student in an Organized Health Care Education/Training Program
DX: Z95.2 Presence of prosthetic heart valve (principal)
CPT/HCPCS: 36415; 85610

== ENCOUNTER 2024-11-08 08:52 | Outpatient (RCR) | payer OTHER, SELFPAY | END 2024-11-08 23:59 | disposition home or self-care (01) | LOC: CRHB 08:52 | PROVIDERS: ATTENDING PHYSICIAN Student in an Organized Health Care Education/Training Program | DX: Z95.2 Presence of prosthetic heart valve (principal) | CPT/HCPCS: G0422; G0423 ==

== ENCOUNTER → 2024-11-22 07:29 | Outpatient (REF) | payer OTHER, SELFPAY ==
[2024-11-22 08:33] LABS: INR 2.43; PT 26.4 Sec (11.4-14.6)
== END ==
LOC: REG 07:29
PROVIDERS: ATTENDING PHYSICIAN Student in an Organized Health Care Education/Training Program; FAMILY PHYSICIAN Student in an Organized Health Care Education/Training Program
DX: Z95.2 Presence of prosthetic heart valve (principal)
CPT/HCPCS: 36415; 85610

== ENCOUNTER → 2024-11-29 07:14 | Outpatient (REF) | payer OTHER, SELFPAY ==
[2024-11-29 08:09] LABS: INR 2.01; PT 22.9 Sec (11.4-14.6)
== END ==
LOC: REG 07:14
PROVIDERS: ATTENDING PHYSICIAN Student in an Organized Health Care Education/Training Program; FAMILY PHYSICIAN Student in an Organized Health Care Education/Training Program
DX: Z95.2 Presence of prosthetic heart valve (principal)
CPT/HCPCS: 36415; 85610

== ENCOUNTER 2024-12-10 08:54 | Outpatient (RCR) | payer OTHER, SELFPAY | END 2024-12-10 23:59 | disposition home or self-care (01) | LOC: CRHB 08:54 | PROVIDERS: ATTENDING PHYSICIAN Student in an Organized Health Care Education/Training Program | DX: Z95.2 Presence of prosthetic heart valve (principal) | CPT/HCPCS: 93797; 93798; G0422; G0423 ==

== ENCOUNTER → 2024-12-14 07:23 | Outpatient (REF) | payer OTHER, SELFPAY ==
[2024-12-14 08:08] LABS: INR 2.08; PT 23.5 Sec (11.4-14.6)
== END ==
LOC: REG 07:23
PROVIDERS: ATTENDING PHYSICIAN Student in an Organized Health Care Education/Training Program; FAMILY PHYSICIAN Student in an Organized Health Care Education/Training Program
DX: Z95.2 Presence of prosthetic heart valve (principal)
CPT/HCPCS: 36415; 85610

== ENCOUNTER → 2024-12-20 07:15 | Outpatient (REF) | payer OTHER, SELFPAY ==
[2024-12-20 08:39] LABS: INR 2.00; PT 22.9 Sec (11.4-14.6)
== END ==
LOC: REG 07:15
PROVIDERS: ATTENDING PHYSICIAN Student in an Organized Health Care Education/Training Program; FAMILY PHYSICIAN Student in an Organized Health Care Education/Training Program
DX: Z95.2 Presence of prosthetic heart valve (principal)
CPT/HCPCS: 36415; 85610

== ENCOUNTER 2025-01-10 10:05 | Outpatient (RCR) | payer OTHER, SELFPAY | END 2025-01-10 23:59 | disposition home or self-care (01) | LOC: CRHB 10:05 | PROVIDERS: ATTENDING PHYSICIAN Student in an Organized Health Care Education/Training Program | DX: Z95.2 Presence of prosthetic heart valve | CPT/HCPCS: G0422; G0423 ==

== ENCOUNTER 2025-02-07 08:46 | Outpatient (RCR) | payer OTHER, SELFPAY | END 2025-02-07 23:59 | disposition home or self-care (01) | LOC: CRHB 08:46 | PROVIDERS: ATTENDING PHYSICIAN Student in an Organized Health Care Education/Training Program | DX: Z95.2 Presence of prosthetic heart valve (principal) | CPT/HCPCS: G0422; G0423 ==

== ENCOUNTER → 2025-02-24 08:12 | Outpatient (REF) | payer OTHER, SELFPAY | LOC: RCS 08:12 | PROVIDERS: ATTENDING PHYSICIAN Student in an Organized Health Care Education/Training Program; FAMILY PHYSICIAN Student in an Organized Health Care Education/Training Program | DX: Z95.2 Presence of prosthetic heart valve (principal) | CPT/HCPCS: 93306 ==